=== PATIENT | male | born 1950 | race Caucasian/White ===

== ENCOUNTER 2021-05-22 14:37 | Inpatient (IN) | payer OTHER, MEDICARE ==
[~2021-05-22] VITALS: Ht 182.9 cm; Wt 111.6 kg
[~2021-05-22 14:37] MED LIST: ALBU90OI INH; BACL10 PO; BASAGLAR K100 UNIT/2 SC; QUET25 PO; STIOLTO RESPIMAT4 GM INH
[2021-05-22 14:54] LABS: BASOPHILS ABSOLUTE AUTO 0.04 K/mm3 (0.00-0.23); BASOPHILS PERCENT AUTO 0 % (0-2); EOSINOPHILS ABSOLUTE AUTO 0.05 K/mm3 (0.00-0.68); EOSINOPHILS PERCENT AUTO 0 % (0-6); Hematocrit 34.6 % (37.0-53.0); Hemoglobin 11.1 g/dL (13.5-17.5); IMMATURE GRAN ABSOLUTE AUTO 0.09 K/mm3 (0.00-0.10); IMMATURE GRAN PERCENT AUTO 1 % (0-1); LYMPHOCYTES ABSOLUTE AUTO 2.07 K/mm3 (0.84-5.20); LYMPHOCYTES PERCENT AUTO 18 % (21-46); MONOCYTES ABSOLUTE AUTO 0.66 K/mm3 (0.16-1.47); MONOCYTES PERCENT AUTO 6 % (4-13); Mean Corpuscular HGB 28.5 pg (26.0-34.0); Mean Corpuscular HGB Conc 32.1 g/dL (31.5-36.5); Mean Corpuscular Volume 89 fL (80-100); Mean Platelet Volume 9.2 fL (9.1-12.4); NEUTROPHILS ABSOLUTE AUTO 8.41 K/mm3 (1.96-9.15); NEUTROPHILS PERCENT AUTO 74 % (41-73); Platelet Count 460 K/mm3 (150-400); RDW Coefficient Variation 14.6 % (11.7-14.2); RDW Standard Deviation 47.3 fL (35.1-46.3); White Blood Cell Count 11.32 K/mm3 (4.00-11.30)
[2021-05-22 15:05] LABS: Calcium, Ionized (POC) 1.11 mmol/L (1.10-1.46); Chloride (POC) 107 mmol/L (98-108); Creatinine (POC) 2.5 mg/dL (0.8-1.3); Glucose (ISTAT POC) 106 mg/dL (70-99); Hemoglobin (POC) 11.2 g/dL (13.5-17.5); Potassium (POC) 4.5 mmol/L (3.5-5.5); Sodium (POC) 139 mmol/L (135-148); Total CO2 (POC) 21 mmol/L (21-32)
[2021-05-22 15:35] LABS: Alanine Aminotransfer (ALT/SGP 17 U/L (12-78); Albumin, Blood 2.6 g/dL (3.4-5.0); Albumin/Globulin Ratio 0.5 (0.8-1.8); Alk Phos 101 U/L (50-136); Anion Gap 8 mmol/L (6-16); Aspartate Aminotrans (AST/SGOT 9 U/L (12-37); Bilirubin, Total 0.3 mg/dL (0.1-1.0); Blood Urea Nitrogen 45 mg/dL (8-24); Bun/Creatinine Ratio 20.7 (12.0-20.0); CO2, Blood 21 mmol/L (21-32); Calcium, Blood 8.4 mg/dL (8.5-10.1); Chloride, Blood 107 mmol/L (98-108); Creatinine, Blood 2.17 mg/dL (0.60-1.20); Globulin, Blood 5.5 g/dL (2.2-4.0); Glomerular Filtration Rate 32 (60-); Glucose, Blood 107 mg/dL (70-99); Potassium, Blood 4.2 mmol/L (3.5-5.5); Sodium, Blood 136 mmol/L (136-145); Total Protein, Blood 8.1 g/dL (6.4-8.2); Troponin I <0.015 ng/mL (0.000-0.040)
[2021-05-22 16:33] LABS: PCO2 Arterial 34.7 mmHg (35-45); PO2 Arterial 120 mmHg (80-100); pH Blood Arterial 7.31 (7.35-7.45)
[2021-05-22] MEDS ORDERED: ATOR40TA PO (16:40)
[2021-05-22] MEDS ORDERED: Aspir 8181 MG PO (16:42)
[2021-05-22] MEDS ORDERED: THERA-D2000 UNIT PO (16:43)
[2021-05-22] MEDS ORDERED: JARDIANCE25 MG PO (16:43)
[2021-05-22] MEDS ORDERED: FURO20 PO (16:44)
[2021-05-22] MEDS ORDERED: GABA300 PO (16:44)
[2021-05-22] MEDS ORDERED: NOVOLOG FL100 UNIT/3 SC (16:45)
[2021-05-22] MEDS ORDERED: LEVSOD75 PO (16:46)
[2021-05-22] MEDS ORDERED: METO50ER PO (16:47)
[2021-05-22] MEDS ORDERED: LISI5 PO (16:47)
[2021-05-22] MEDS ORDERED: METF500C PO (16:48)
[2021-05-22] MEDS ORDERED: OMEP20ER PO (16:49)
[2021-05-22] MEDS ORDERED: Flomax0.4 MG PO (16:49)
[2021-05-22] MEDS ORDERED: POTA10T PO (16:50)
[2021-05-22] MEDS ORDERED: ATHLETE'S FOO35.4 GM TOP (16:52)
[2021-05-22] MEDS ORDERED: ANTIFUNGAL POWD71 GM TOP (16:53)
[2021-05-22] MEDS ORDERED: MAGNESIUM OXID500 MG PO (16:53)
[2021-05-22] MEDS ORDERED: GLUCOSE4 GM PO (16:55)
--- NOTE | 2021-05-22 19:01 | NUR ---
PT TO ICU 8 FROM ED AT 1810. PT ARRIVED INTUBATED AND SEDATED ON PROPOFOL 60 MCG/KG/MIN, LEVOPHED @ 12 MCG/MIN. VENT SETTINGS AC 16/450/5/45%. DR. MUNGUIA AT BEDSIDE. DECISION TO EXTUBATE. PROPOFOL PLACED ON STANDBY, PT EXTUBATED AT 1835 TO ROOM AIR. LEVOPHED PLACED ON STANDBY. VSS. REPORT GIVEN TO ONCOMING NURSE.
--- NOTE | 2021-05-22 19:11 | NUR ---
CONSULT- NOTIFIED DR. MARTINEZ OF SURGICAL CONSULT. REVIEWED PT STATUS, SEPTIC SHOCK, VASOPRESSOR REQUIREMENT, FOOT WOUND. INSTRUCTED TO CONSULT PODIATRY. DR. MUNGUIA UPDATED.
--- NOTE | 2021-05-22 19:17 | NUR ---
CONSULT- ATTEMPT TO CALL PODIATRY CONSULT. 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 MESSAGE LEFT FOR LAST SLIP PRESSER PHYSICIAN.
--- NOTE | 2021-05-22 19:45 | NUR ---
ASSUMING PT CARE: PT ARRIVAL. PT HAD ARRIVED SHORTLY BEFORE SHIFT CHANGE AN ADMIT FROM THE ED. PER ED REPORT, PT WAS @ THE [place] FOR SCHEDULED WOUND CARE WHEN HE HAD A SYNCOPAL EPISODE IN THE RESTROOM. HE WAS FOUND TO BE PALE, DIAPHORETIC, & TRANSFERRED TO [facility]. UPON ARRIVAL, PT WAS INITIALLY TALKATIVE & ALERT, BUT PROGRESSIVELY BECAME SOMNOLENT, UNABLE TO RESPOND, PALE & W/ INC WORK OF BREATHING. SBP DROPPED TO 60s. FAST SCAN WAS SUSPICIOUS FOR PERICARDIAL EFFUSION HOWEVER WHEN THE PT's SKIN BECAME MOTTLED & COOL, A 2nd FAST SCAN SHOWED POSS DISSECTION. PT WAS INTUBATED & CTA OBTAINED W/ NEG RESULTS. PT ADMITTED TO ICU FOR SEPTIC SHOCK. SHORTLY AFTER ARRIVAL TO ICU, PT WAS EXTUABTED & PLACED ON NC.
[2021-05-22 20:20] LABS: Source, Urine Catheter
[2021-05-22 20:24] LABS: Appearance, Urine Clear (Clear); Bilirubin, Urine Neg (Neg); Blood, Urine Neg (Neg); Color, Urine Yellow (P-Yellow); Glucose Qualitative, Urine 2+ (Neg); Ketones, Urine Neg (Neg); Leukocyte Esterase, Urine Neg (Neg); Nitrite, Urine Neg (Neg); Protein, Urine 1+ (Neg); Specific Gravity, Urine 1.015 (1.003-1.022); Urobilinogen, Urine NORM (Normal)
[2021-05-22 20:36] LABS: U Amphetamine Screen Not Detected; U Barbituate Screen Not Detected; U Benzodiazapine Screen Not Detected; U Buprenorphine Screen Not Detected; U Cannabinoids Screen Not Detected; U Cocaine Screen Not Detected; U Methadone Screen Not Detected; U Methamphetamine Screen Not Detected; U Opiates Screen Not Detected; U Oxycodone Screen Not Detected; U Phencyclidine Screen Not Detected; U Propoxyphene Screen Not Detected
--- NOTE | 2021-05-22 21:00 | NUR ---
UPDATE: SPOKE W/ DR LEDEZMA, HE IS UNABLE TO CONSULT W/ THIS PT. THERE IS NOT ANOTHER GUIDANCE SECRETARY DECKHAND MAINTENANCE @ THIS TIME. EZRA CALLED & UPDATED, LIQUOR DEPARTMENT MANAGER ALSO MADE AWARE. PT BECOMING INCREASINGLY DYSPNEIC W/ RESP RATE 30-35, W/ COARSE BS AUDIBLE FROM THE DOOR. PT ONLY ABLE TO SPEAK IN 1 WORD SENTENCES & IS VERY TREMULOUS. IV FLUIDS PLACED ON SB & EZRA CALLED & UPDATED ON PT STATUS. ORDERS GIVEN FOR 20mg IV LASIX & CPAP/BiPAP PROTOCOL. RT CALLED TO ASSIST & ORDERS PLACED.
--- NOTE | 2021-05-23 00:30 | NUR ---
UPDATE: CPAP TO NC PT UNABLE TO TOLERATE CPAP ANY LONGER. RT @ BEDSIDE & PT PLACED ON 4L/MIN VIA NC. PT IS STILL VERY DYSPNEIC W/ EXERTION, ONLY ABLE TO SPEAK IN 2 WORD SENTENCES HOWEVER LS HAVE IMPROVED.
--- NOTE | 2021-05-23 02:30 | NUR ---
UPDATE: FEVER PT CONTINUES TO HAVE PERSISTENT INCONTINENCE OF BOWEL. ORDERED MD TYLENOL UNABLE TO BE GIVEN BECAUSE OF CONTINUOUS STOOL. PT PROVIDED W/ COOL WASH CLOTHS & SHEETS REMOVED UNTIL MED CAN BE EFFECTIVELY GIVEN. STOOLS WERE INITIALLY LIQUID & LOOSE, NOW APPEAR TO BE SOMEWHAT PASTY. PT DOES REPORT RECENT CONSTIPATION @ HOME, DENIES TAKING ANY STOOL SOFTENERS OR LAXATIVES.
[2021-05-23 03:50] LABS: PCO2 Arterial 30.5 mmHg (35-45); PO2 Arterial 107 mmHg (80-100); pH Blood Arterial 7.36 (7.35-7.45)
[2021-05-23 03:57] LABS: BASOPHILS ABSOLUTE AUTO 0.07 K/mm3 (0.00-0.23); BASOPHILS PERCENT AUTO 0 % (0-2); EOSINOPHILS ABSOLUTE AUTO 0.01 K/mm3 (0.00-0.68); EOSINOPHILS PERCENT AUTO 0 % (0-6); Hematocrit 33.5 % (37.0-53.0); Hemoglobin 10.7 g/dL (13.5-17.5); IMMATURE GRAN ABSOLUTE AUTO 0.41 K/mm3 (0.00-0.10); IMMATURE GRAN PERCENT AUTO 2 % (0-1); LYMPHOCYTES ABSOLUTE AUTO 1.64 K/mm3 (0.84-5.20); LYMPHOCYTES PERCENT AUTO 6 % (21-46); MONOCYTES ABSOLUTE AUTO 1.93 K/mm3 (0.16-1.47); MONOCYTES PERCENT AUTO 7 % (4-13); Mean Corpuscular HGB 28.3 pg (26.0-34.0); Mean Corpuscular HGB Conc 31.9 g/dL (31.5-36.5); Mean Corpuscular Volume 89 fL (80-100); Mean Platelet Volume 9.6 fL (9.1-12.4); NEUTROPHILS ABSOLUTE AUTO 23.72 K/mm3 (1.96-9.15); NEUTROPHILS PERCENT AUTO 85 % (41-73); Platelet Count 384 K/mm3 (150-400); RDW Standard Deviation 48.2 fL (35.1-46.3); Red Blood Cell Count 3.78 M/mm3 (4.30-5.90); White Blood Cell Count 27.78 K/mm3 (4.00-11.30)
[2021-05-23 04:14] LABS: Bun/Creatinine Ratio 20.9 (12.0-20.0); Calcium, Blood 7.9 mg/dL (8.5-10.1); Creatinine, Blood 2.15 mg/dL (0.60-1.20); Magnesium, Blood 1.6 mg/dL (1.6-2.4); Phosphorus, Blood 3.5 mg/dL (2.5-4.9); Potassium, Blood 4.7 mmol/L (3.5-5.5)
--- NOTE | 2021-05-23 06:00 | NUR ---
SHIFT SUMARY: PT CONTINUES TO DO WELL ON NC @ 4L. SATS >95%. RR 16-22. PT NOW ABLE TO SPEAK IN 3-4 WORD SENTENCES & HELP W/ POSITION CHANGES W/ ONLY MILD CONTINUING DYSPNEA. MONITOR INDICATES A SINUS RHYTHM W/ RATE 70s, SBP 140s. BMs HAVE BECOME MORE FORMED THE NIGHT PROGRESSED. SM AMT OF SKIN BREAKDOWN HAS DEVELOPED OVER THE NIGHT. IT WAS DRESSED W/ HYDROGEL & A FOAM DRESSING. SPOKE W/ PT'S SO THIS MORNING & GIVEN UPDATE ON PT'S IMPROVEMENTS.
--- NOTE | 2021-05-23 09:55 | NUR ---
ASSUMED CARE OF PT, REPORT RCV'D FROM UMESH HAWTHORNE. PT ALERT AND ORIENTED. LUNG SOUNDS CLEAR, SATS 98% ON ROOM AIR. PT HAS OCCASIONAL WET NON PRODUCTIVE COUGH. PT HAS HAD MULTIPLE EPISODE OF WATERY STOOL, MOSTLY CONTINENT. VIDAL REMAINS PATENT AND DRAINING TO GRAVITY. DR. RENNER AT BESIDE, PLAN TO TRANSFER PT TO [place] FOR REVASCULARIZATION AND PODIATRY. LEFT GREAT TOE SWOLLEN AND PURPLE, LEFT MEDIAL FOOT BLACK ESCHAR (FOUL SMELLING), RIGHT GREAT TOE VASCULAR ULCER (SEE PICTS IN CHART). PULSES ABSENT BILATERAL LOWER EXTREMETIES, FLOW HEARD WITH DOPPLER. RIGHT LEG COOL TO TOUCH, LEFT LEG WARM. VSS AT THIS TIME. PT DENIES NEEDS. SEE FULL SHIFT ASSESSMENT.
--- NOTE | 2021-05-23 10:50 | NUR ---
Spoke with Primary RN Aditya and discussed case. Dr Harris to order transfer to [place]. Pt resting in bed upon arrival. Pt denies pain and dyspnea at this time. Reviewed plan of care with Pt and possible plan for transfer. Pt reports being in agreement with plan. He states having an appointment at [facility] tomorrow. Pt requests an extra blanket. After confirming with Aditya provided blanket for Pt. Dr Flores into to see Pt. Palliative Care will remain available.
--- NOTE | 2021-05-23 14:59 | NUR ---
PT AND PT'S GIRLFRIEND (LIZETH) UPDATED WITH PLAN TO TRANSFER TO [facility] INTO THE CARE OF PT'S SURGEON DR. ESCALONA BED BECOMES AVAILABLE. PT'S GIRLFRIEND TAKING PT'S BELONGINGS HOME AND LEAVING "TO GO" BAG WITH EXTRA CHANGE OF CLOTHES. PER LIZETH, PT'S BROTHER AND SISTER ARE FLYING IN FROM OUT OF STATE TOMORROW TO BE AVAILABLE FOR SUPPORT. PT REMAINS ON ROOM AIR WITH SATS>90%, BP WNL. PT ABLE TO EAT LUNCH WITH NO DIFFICULTIES. PT DENIES NEEDS AT THIS TIME.
--- NOTE | 2021-05-23 15:42 | NUR ---
PT TO BE TRANSFERRED TO [facility] ROOM 4409. REPORT GIVEN TO UMESH WOODRUFF. PT AND FAMILY UPDATED AND MEDICAL TRANSPORT NOTIFIED.
--- NOTE | 2021-05-23 16:30 | NUR ---
PT LEFT ICUJ8 AT 1628 TRANSPORTED VIA GURNEY BY EMS. PT'S GIRLFRIEND AT BEDSIDE.
== END 2021-05-23 16:29 | disposition short-term general hospital (02) | DRG 871 ==
LOC: ER 14:37 → ICUE 16:17 → ICUW 16:17 → ICUE 17:41
PROVIDERS: Emergency Medicine; Internal Medicine Critical Care Medicine; Nurse Practitioner Acute Care; ADMIT Internal Medicine
PROC: 0BH18EZ Insertion of Endotracheal Airway into Trachea, Via Natural or Artificial Opening Endoscopic (ICD-10-PCS; principal; 2021-05-22)
PROC: 5A1935Z Respiratory Ventilation, Less than 24 Consecutive Hours (ICD-10-PCS; 2021-05-22)
PROC: 3E033XZ Introduction of Vasopressor into Peripheral Vein, Percutaneous Approach (ICD-10-PCS; 2021-05-22)
DX: A41.9 Sepsis, unspecified organism (principal); R65.21 Severe sepsis with septic shock; J96.01 Acute respiratory failure with hypoxia; I50.42 Chronic combined systolic (congestive) and diastolic (congestive) heart failure; I13.0 Hypertensive heart and chronic kidney disease with heart failure and stage 1 through stage 4 chronic kidney disease, or unspecified chronic kidney disease; E11.52 Type 2 diabetes mellitus with diabetic peripheral angiopathy with gangrene; I96 Gangrene, not elsewhere classified; J44.9 Chronic obstructive pulmonary disease, unspecified; E11.22 Type 2 diabetes mellitus with diabetic chronic kidney disease; E11.51 Type 2 diabetes mellitus with diabetic peripheral angiopathy without gangrene; Z95.1 Presence of aortocoronary bypass graft; E83.42 Hypomagnesemia; N18.30 Chronic kidney disease, stage 3 unspecified; E11.40 Type 2 diabetes mellitus with diabetic neuropathy, unspecified; Z85.118 Personal history of other malignant neoplasm of bronchus and lung; N40.0 Benign prostatic hyperplasia without lower urinary tract symptoms; B19.20 Unspecified viral hepatitis C without hepatic coma; Z90.49 Acquired absence of other specified parts of digestive tract; Z98.890 Other specified postprocedural states; Z90.2 Acquired absence of lung [part of]; Z89.429 Acquired absence of other toe(s), unspecified side; Z87.891 Personal history of nicotine dependence; Z79.82 Long term (current) use of aspirin; Z79.899 Other long term (current) drug therapy; Z79.4 Long term (current) use of insulin
CPT/HCPCS: 31500; 36415; 36600; 51702; 71045; 71275; 73630; 74174; 80047; 80048; 80053; 82330; 82803; 82947; 83605; 83690; 83735; 84100; 84484; 85014; 85025; 85730; 87040; 93005; 93010; 93925; 94002; 94660; 96365-59; 96366-59; 99285-25; A9270; C1751; J0330; J0692; J1940; J2543; J2704; J3010; J3370; J3475; J7030; J7060; Q9967

== ENCOUNTER 2021-08-09 02:34 | Day surgery (SDC) | payer OTHER ==
[~2021-08-09 02:34] MED LIST changes: +ANTIFUNGAL POWD71 GM TOP; +ATHLETE'S FOO35.4 GM TOP; +ATOR40TA PO; +Aspir 8181 MG PO; +FURO20 PO; +Flomax0.4 MG PO; +GABA300 PO; +GLUCOSE4 GM PO; +JARDIANCE25 MG PO; +LEVSOD75 PO; +LISI5 PO; +MAGNESIUM OXID500 MG PO; +METF500C PO; +METO50ER PO; +NOVOLOG FL100 UNIT/3 SC; +OMEP20ER PO; +POTA10T PO; +THERA-D2000 UNIT PO
== END 2021-08-09 23:48 | disposition home or self-care (01) ==
LOC: WOUND 02:34
DX: E11.621 Type 2 diabetes mellitus with foot ulcer (principal); L97.519 Non-pressure chronic ulcer of other part of right foot with unspecified severity; E11.59 Type 2 diabetes mellitus with other circulatory complications; Z89.412 Acquired absence of left great toe
CPT/HCPCS: A9270

== ENCOUNTER 2021-08-14 01:15 | Day surgery (SDC) | payer OTHER | END 2021-08-14 23:05 | disposition home or self-care (01) | LOC: WOUND 01:15 | DX: E11.621 Type 2 diabetes mellitus with foot ulcer (principal); L97.525 Non-pressure chronic ulcer of other part of left foot with muscle involvement without evidence of necrosis; E11.59 Type 2 diabetes mellitus with other circulatory complications; Z89.412 Acquired absence of left great toe ==

== ENCOUNTER 2021-08-16 00:56 | Day surgery (SDC) | payer OTHER | END 2021-08-16 23:55 | disposition home or self-care (01) | LOC: WOUND 00:56 | DX: E11.621 Type 2 diabetes mellitus with foot ulcer (principal); L97.519 Non-pressure chronic ulcer of other part of right foot with unspecified severity; E11.59 Type 2 diabetes mellitus with other circulatory complications; Z89.412 Acquired absence of left great toe | CPT/HCPCS: A9270 ==

== ENCOUNTER 2021-08-18 01:56 | Day surgery (SDC) | payer OTHER | END 2021-08-18 23:23 | disposition home or self-care (01) | LOC: WOUND 01:56 | DX: E11.621 Type 2 diabetes mellitus with foot ulcer (principal); L97.525 Non-pressure chronic ulcer of other part of left foot with muscle involvement without evidence of necrosis; L97.519 Non-pressure chronic ulcer of other part of right foot with unspecified severity; E11.59 Type 2 diabetes mellitus with other circulatory complications; Z89.412 Acquired absence of left great toe ==

== ENCOUNTER 2021-08-21 02:53 | Day surgery (SDC) | payer OTHER | END 2021-08-21 22:57 | disposition home or self-care (01) | LOC: WOUND 02:53 | DX: E11.621 Type 2 diabetes mellitus with foot ulcer (principal); L97.519 Non-pressure chronic ulcer of other part of right foot with unspecified severity; E11.59 Type 2 diabetes mellitus with other circulatory complications; Z89.412 Acquired absence of left great toe ==

== ENCOUNTER 2021-08-25 04:36 | Day surgery (SDC) | payer OTHER | END 2021-08-25 23:15 | disposition home or self-care (01) | LOC: WOUND 04:36 | DX: E11.621 Type 2 diabetes mellitus with foot ulcer (principal); L97.525 Non-pressure chronic ulcer of other part of left foot with muscle involvement without evidence of necrosis; L97.519 Non-pressure chronic ulcer of other part of right foot with unspecified severity; E11.59 Type 2 diabetes mellitus with other circulatory complications; Z89.412 Acquired absence of left great toe | CPT/HCPCS: A9270 ==

== ENCOUNTER 2021-08-31 00:37 | Day surgery (SDC) | payer OTHER | END 2021-08-31 23:03 | disposition home or self-care (01) | LOC: WOUND 00:37 | DX: E10.621 Type 1 diabetes mellitus with foot ulcer (principal); L97.525 Non-pressure chronic ulcer of other part of left foot with muscle involvement without evidence of necrosis; L97.519 Non-pressure chronic ulcer of other part of right foot with unspecified severity; E10.42 Type 1 diabetes mellitus with diabetic polyneuropathy; E10.59 Type 1 diabetes mellitus with other circulatory complications; Z89.412 Acquired absence of left great toe | CPT/HCPCS: A9270 ==

== ENCOUNTER 2021-09-08 01:21 | Day surgery (SDC) | payer OTHER | END 2021-09-08 23:45 | disposition home or self-care (01) | LOC: WOUND 01:21 | DX: E11.621 Type 2 diabetes mellitus with foot ulcer (principal); L97.422 Non-pressure chronic ulcer of left heel and midfoot with fat layer exposed; L97.519 Non-pressure chronic ulcer of other part of right foot with unspecified severity; E11.59 Type 2 diabetes mellitus with other circulatory complications; E11.42 Type 2 diabetes mellitus with diabetic polyneuropathy; Z89.412 Acquired absence of left great toe | CPT/HCPCS: A9270 ==

== ENCOUNTER 2021-09-22 03:41 | Day surgery (SDC) | payer OTHER | END 2021-09-22 22:53 | disposition home or self-care (01) | LOC: WOUND 03:41 | DX: E11.621 Type 2 diabetes mellitus with foot ulcer (principal); L97.525 Non-pressure chronic ulcer of other part of left foot with muscle involvement without evidence of necrosis; L97.519 Non-pressure chronic ulcer of other part of right foot with unspecified severity; E11.59 Type 2 diabetes mellitus with other circulatory complications; Z89.412 Acquired absence of left great toe | CPT/HCPCS: A9270 ==

== ENCOUNTER 2021-09-29 05:45 | Day surgery (SDC) | payer OTHER | END 2021-09-29 23:35 | disposition home or self-care (01) | LOC: WOUND 05:45 | DX: E11.621 Type 2 diabetes mellitus with foot ulcer (principal); L97.525 Non-pressure chronic ulcer of other part of left foot with muscle involvement without evidence of necrosis; L97.519 Non-pressure chronic ulcer of other part of right foot with unspecified severity; E11.59 Type 2 diabetes mellitus with other circulatory complications; Z89.412 Acquired absence of left great toe | CPT/HCPCS: A9270 ==

== ENCOUNTER 2021-10-16 01:48 | Day surgery (SDC) | payer OTHER | END 2021-10-16 23:10 | disposition home or self-care (01) | LOC: WOUND 01:48 | DX: E11.621 Type 2 diabetes mellitus with foot ulcer (principal); L97.525 Non-pressure chronic ulcer of other part of left foot with muscle involvement without evidence of necrosis; L97.519 Non-pressure chronic ulcer of other part of right foot with unspecified severity; E11.59 Type 2 diabetes mellitus with other circulatory complications; Z89.412 Acquired absence of left great toe | CPT/HCPCS: A9270 ==

== ENCOUNTER 2021-10-23 04:16 | Day surgery (SDC) | payer OTHER | END 2021-10-23 23:05 | disposition home or self-care (01) | LOC: WOUND 04:16 | DX: E11.621 Type 2 diabetes mellitus with foot ulcer (principal); L97.525 Non-pressure chronic ulcer of other part of left foot with muscle involvement without evidence of necrosis; L97.519 Non-pressure chronic ulcer of other part of right foot with unspecified severity; E11.59 Type 2 diabetes mellitus with other circulatory complications; Z89.412 Acquired absence of left great toe | CPT/HCPCS: A9270 ==

== ENCOUNTER 2021-10-30 03:54 | Day surgery (SDC) | payer OTHER | END 2021-10-30 22:51 | disposition home or self-care (01) | LOC: WOUND 03:54 | DX: E11.621 Type 2 diabetes mellitus with foot ulcer (principal); L97.519 Non-pressure chronic ulcer of other part of right foot with unspecified severity; E11.59 Type 2 diabetes mellitus with other circulatory complications; Z89.412 Acquired absence of left great toe | CPT/HCPCS: A9270; Q4133 ==

== ENCOUNTER 2021-11-06 04:18 | Day surgery (SDC) | payer OTHER | END 2021-11-06 12:00 | disposition home or self-care (01) | LOC: WOUND 04:18 | DX: E11.621 Type 2 diabetes mellitus with foot ulcer (principal); L97.525 Non-pressure chronic ulcer of other part of left foot with muscle involvement without evidence of necrosis; L97.519 Non-pressure chronic ulcer of other part of right foot with unspecified severity; E11.59 Type 2 diabetes mellitus with other circulatory complications; Z89.412 Acquired absence of left great toe | CPT/HCPCS: A9270; G0463 ==

== ENCOUNTER 2021-11-13 04:36 | Day surgery (SDC) | payer OTHER | END 2021-11-13 22:49 | disposition home or self-care (01) | LOC: WOUND 04:36 | DX: E11.621 Type 2 diabetes mellitus with foot ulcer (principal); L97.525 Non-pressure chronic ulcer of other part of left foot with muscle involvement without evidence of necrosis; E11.59 Type 2 diabetes mellitus with other circulatory complications; Z89.412 Acquired absence of left great toe | CPT/HCPCS: A9270; Q4133 ==

== ENCOUNTER 2021-11-20 03:47 | Day surgery (SDC) | payer OTHER | END 2021-11-20 22:42 | disposition home or self-care (01) | LOC: WOUND 03:47 | DX: E11.621 Type 2 diabetes mellitus with foot ulcer (principal); L97.519 Non-pressure chronic ulcer of other part of right foot with unspecified severity; E11.59 Type 2 diabetes mellitus with other circulatory complications; E11.42 Type 2 diabetes mellitus with diabetic polyneuropathy; Z89.412 Acquired absence of left great toe | CPT/HCPCS: A9270; Q4133 ==

== ENCOUNTER 2021-12-06 05:58 | Day surgery (SDC) | payer OTHER | END 2021-12-06 23:42 | disposition home or self-care (01) | LOC: WOUND 05:58 | DX: E11.621 Type 2 diabetes mellitus with foot ulcer (principal); L97.525 Non-pressure chronic ulcer of other part of left foot with muscle involvement without evidence of necrosis; L97.519 Non-pressure chronic ulcer of other part of right foot with unspecified severity; E11.59 Type 2 diabetes mellitus with other circulatory complications; Z89.412 Acquired absence of left great toe | CPT/HCPCS: Q4133 ==

== ENCOUNTER 2021-12-13 01:50 | Day surgery (SDC) | payer OTHER | END 2021-12-13 22:37 | disposition home or self-care (01) | LOC: WOUND 01:50 | DX: E10.621 Type 1 diabetes mellitus with foot ulcer (principal); L97.525 Non-pressure chronic ulcer of other part of left foot with muscle involvement without evidence of necrosis; L97.519 Non-pressure chronic ulcer of other part of right foot with unspecified severity; E10.59 Type 1 diabetes mellitus with other circulatory complications; E10.42 Type 1 diabetes mellitus with diabetic polyneuropathy; Z89.412 Acquired absence of left great toe; Z86.14 Personal history of Methicillin resistant Staphylococcus aureus infection | CPT/HCPCS: Q4133 ==

== ENCOUNTER 2021-12-20 00:46 | Day surgery (SDC) | payer OTHER | END 2021-12-20 22:50 | disposition home or self-care (01) | LOC: WOUND 00:46 | DX: E11.621 Type 2 diabetes mellitus with foot ulcer (principal); L97.525 Non-pressure chronic ulcer of other part of left foot with muscle involvement without evidence of necrosis; L97.519 Non-pressure chronic ulcer of other part of right foot with unspecified severity; E11.59 Type 2 diabetes mellitus with other circulatory complications; Z89.412 Acquired absence of left great toe | CPT/HCPCS: A9270; Q4133 ==

== ENCOUNTER 2021-12-27 01:28 | Day surgery (SDC) | payer OTHER | END 2021-12-27 23:05 | disposition home or self-care (01) | LOC: WOUND 01:28 | DX: E10.621 Type 1 diabetes mellitus with foot ulcer (principal); L97.525 Non-pressure chronic ulcer of other part of left foot with muscle involvement without evidence of necrosis; Z89.412 Acquired absence of left great toe; E10.42 Type 1 diabetes mellitus with diabetic polyneuropathy; Z86.14 Personal history of Methicillin resistant Staphylococcus aureus infection | CPT/HCPCS: G0463 ==

== ENCOUNTER 2022-01-03 03:38 | Day surgery (SDC) | payer OTHER | END 2022-01-04 02:22 | disposition home or self-care (01) | LOC: WOUND 03:38 | DX: E11.621 Type 2 diabetes mellitus with foot ulcer (principal); L97.525 Non-pressure chronic ulcer of other part of left foot with muscle involvement without evidence of necrosis; E11.59 Type 2 diabetes mellitus with other circulatory complications; L97.519 Non-pressure chronic ulcer of other part of right foot with unspecified severity; Z89.412 Acquired absence of left great toe | CPT/HCPCS: Q4133 ==

== ENCOUNTER 2022-01-10 01:12 | Day surgery (SDC) | payer OTHER | END 2022-01-10 23:33 | disposition home or self-care (01) | LOC: WOUND 01:12 | DX: E11.621 Type 2 diabetes mellitus with foot ulcer (principal); L97.525 Non-pressure chronic ulcer of other part of left foot with muscle involvement without evidence of necrosis; L97.519 Non-pressure chronic ulcer of other part of right foot with unspecified severity; E11.59 Type 2 diabetes mellitus with other circulatory complications; E11.42 Type 2 diabetes mellitus with diabetic polyneuropathy; Z89.412 Acquired absence of left great toe ==

== ENCOUNTER 2022-01-17 00:17 | Day surgery (SDC) | payer OTHER | END 2022-01-17 23:21 | disposition home or self-care (01) | LOC: WOUND 00:17 | DX: E11.621 Type 2 diabetes mellitus with foot ulcer (principal); L97.522 Non-pressure chronic ulcer of other part of left foot with fat layer exposed; E11.59 Type 2 diabetes mellitus with other circulatory complications; E11.42 Type 2 diabetes mellitus with diabetic polyneuropathy; Z89.412 Acquired absence of left great toe | CPT/HCPCS: G0463 ==

== ENCOUNTER 2022-01-24 01:02 | Day surgery (SDC) | payer OTHER | END 2022-01-24 22:48 | disposition home or self-care (01) | LOC: WOUND 01:02 | DX: E11.621 Type 2 diabetes mellitus with foot ulcer (principal); L97.522 Non-pressure chronic ulcer of other part of left foot with fat layer exposed; Z89.412 Acquired absence of left great toe; Z86.14 Personal history of Methicillin resistant Staphylococcus aureus infection | CPT/HCPCS: A9270; G0463 ==

== ENCOUNTER 2022-01-31 01:58 | Day surgery (SDC) | payer OTHER | END 2022-01-31 23:19 | disposition home or self-care (01) | LOC: WOUND 01:58 | DX: E11.621 Type 2 diabetes mellitus with foot ulcer (principal); L97.522 Non-pressure chronic ulcer of other part of left foot with fat layer exposed; E11.42 Type 2 diabetes mellitus with diabetic polyneuropathy; Z86.14 Personal history of Methicillin resistant Staphylococcus aureus infection; Z89.412 Acquired absence of left great toe | CPT/HCPCS: A9270 ==

== ENCOUNTER 2022-02-07 10:46 | Day surgery (SDC) | payer OTHER | END 2022-02-07 23:01 | disposition home or self-care (01) | LOC: WOUND 10:46 | DX: E11.621 Type 2 diabetes mellitus with foot ulcer (principal); L97.522 Non-pressure chronic ulcer of other part of left foot with fat layer exposed; E11.42 Type 2 diabetes mellitus with diabetic polyneuropathy; Z86.14 Personal history of Methicillin resistant Staphylococcus aureus infection; Z89.412 Acquired absence of left great toe | CPT/HCPCS: A9270; Q4133 ==

== ENCOUNTER 2022-02-14 01:14 | Day surgery (SDC) | payer OTHER ==
[~2022-02-14 01:14] MED LIST changes: -ANTIFUNGAL POWD71 GM TOP; +ANTIFUNGAL POWD85 GM TOP; +LEVSOD100 PO; -LEVSOD75 PO
== END 2022-02-14 23:13 | disposition home or self-care (01) ==
LOC: WOUND 01:14
DX: E11.621 Type 2 diabetes mellitus with foot ulcer (principal); L97.522 Non-pressure chronic ulcer of other part of left foot with fat layer exposed; E11.59 Type 2 diabetes mellitus with other circulatory complications; L97.519 Non-pressure chronic ulcer of other part of right foot with unspecified severity; Z89.412 Acquired absence of left great toe
CPT/HCPCS: Q4133

== ENCOUNTER 2022-02-20 02:28 | Day surgery (SDC) | payer OTHER ==
[~2022-02-20 02:28] MED LIST changes: +ANTIFUNGAL POWD71 GM TOP; -ANTIFUNGAL POWD85 GM TOP; -LEVSOD100 PO; +LEVSOD75 PO
== END 2022-02-20 23:35 | disposition home or self-care (01) ==
LOC: WOUND 02:28
DX: E11.621 Type 2 diabetes mellitus with foot ulcer (principal); L97.522 Non-pressure chronic ulcer of other part of left foot with fat layer exposed; E11.40 Type 2 diabetes mellitus with diabetic neuropathy, unspecified; E11.59 Type 2 diabetes mellitus with other circulatory complications; Z89.412 Acquired absence of left great toe
CPT/HCPCS: A9270; G0463

== ENCOUNTER 2022-02-28 00:29 | Day surgery (SDC) | payer OTHER | END 2022-02-28 23:00 | disposition home or self-care (01) | LOC: WOUND 00:29 | DX: E11.621 Type 2 diabetes mellitus with foot ulcer (principal); L97.522 Non-pressure chronic ulcer of other part of left foot with fat layer exposed; E11.42 Type 2 diabetes mellitus with diabetic polyneuropathy; T81.31XA Disruption of external operation (surgical) wound, not elsewhere classified, initial encounter; Y83.8 Other surgical procedures as the cause of abnormal reaction of the patient, or of later complication, without mention of misadventure at the time of the procedure; E11.59 Type 2 diabetes mellitus with other circulatory complications; Z89.412 Acquired absence of left great toe | CPT/HCPCS: A9270; G0463 ==

== ENCOUNTER 2022-03-07 01:49 | Day surgery (SDC) | payer OTHER | END 2022-03-07 23:20 | disposition home or self-care (01) | LOC: WOUND 01:49 | DX: E11.621 Type 2 diabetes mellitus with foot ulcer (principal); L97.522 Non-pressure chronic ulcer of other part of left foot with fat layer exposed; E11.59 Type 2 diabetes mellitus with other circulatory complications; L97.519 Non-pressure chronic ulcer of other part of right foot with unspecified severity; Z89.412 Acquired absence of left great toe | CPT/HCPCS: G0463 ==

== ENCOUNTER 2022-03-14 02:15 | Day surgery (SDC) | payer OTHER | END 2022-03-14 23:08 | disposition home or self-care (01) | LOC: WOUND 02:15 | DX: E11.621 Type 2 diabetes mellitus with foot ulcer (principal); L97.522 Non-pressure chronic ulcer of other part of left foot with fat layer exposed; E11.42 Type 2 diabetes mellitus with diabetic polyneuropathy; Z89.412 Acquired absence of left great toe; Z86.14 Personal history of Methicillin resistant Staphylococcus aureus infection | CPT/HCPCS: A9270; G0463 ==

== ENCOUNTER 2022-03-21 15:29 | Day surgery (SDC) | payer OTHER | END 2022-03-21 23:04 | disposition home or self-care (01) | LOC: WOUND 15:29 | DX: E11.621 Type 2 diabetes mellitus with foot ulcer (principal); L97.522 Non-pressure chronic ulcer of other part of left foot with fat layer exposed; Z89.412 Acquired absence of left great toe; T81.31XA Disruption of external operation (surgical) wound, not elsewhere classified, initial encounter; Z86.14 Personal history of Methicillin resistant Staphylococcus aureus infection | CPT/HCPCS: G0463 ==

== ENCOUNTER 2022-03-28 01:16 | Day surgery (SDC) | payer OTHER | END 2022-03-28 22:44 | disposition home or self-care (01) | LOC: WOUND 01:16 | DX: E11.621 Type 2 diabetes mellitus with foot ulcer (principal); T81.31XA Disruption of external operation (surgical) wound, not elsewhere classified, initial encounter; L97.519 Non-pressure chronic ulcer of other part of right foot with unspecified severity; L97.522 Non-pressure chronic ulcer of other part of left foot with fat layer exposed; E11.59 Type 2 diabetes mellitus with other circulatory complications; Z89.412 Acquired absence of left great toe | CPT/HCPCS: A9270; G0463 ==

== ENCOUNTER 2022-04-06 00:29 | Day surgery (SDC) | payer OTHER | END 2022-04-06 22:52 | disposition home or self-care (01) | LOC: WOUND 00:29 | DX: E11.621 Type 2 diabetes mellitus with foot ulcer (principal); L97.519 Non-pressure chronic ulcer of other part of right foot with unspecified severity; L97.522 Non-pressure chronic ulcer of other part of left foot with fat layer exposed; E11.59 Type 2 diabetes mellitus with other circulatory complications; Z89.412 Acquired absence of left great toe | CPT/HCPCS: A9270; G0463 ==

== ENCOUNTER 2022-04-11 02:35 | Day surgery (SDC) | payer OTHER | END 2022-04-11 23:37 | disposition home or self-care (01) | LOC: WOUND 02:35 | DX: E11.621 Type 2 diabetes mellitus with foot ulcer (principal); L97.522 Non-pressure chronic ulcer of other part of left foot with fat layer exposed; L97.519 Non-pressure chronic ulcer of other part of right foot with unspecified severity; E11.59 Type 2 diabetes mellitus with other circulatory complications; Z89.412 Acquired absence of left great toe; E11.42 Type 2 diabetes mellitus with diabetic polyneuropathy | CPT/HCPCS: A9270; G0463 ==

== ENCOUNTER 2022-04-17 02:03 | Day surgery (SDC) | payer OTHER | END 2022-04-17 23:16 | disposition home or self-care (01) | LOC: WOUND 02:03 | DX: E11.621 Type 2 diabetes mellitus with foot ulcer (principal); L97.522 Non-pressure chronic ulcer of other part of left foot with fat layer exposed; L97.519 Non-pressure chronic ulcer of other part of right foot with unspecified severity; Z89.412 Acquired absence of left great toe; E11.59 Type 2 diabetes mellitus with other circulatory complications; T81.30XA Disruption of wound, unspecified, initial encounter | CPT/HCPCS: A9270 ==

== ENCOUNTER 2022-04-25 01:40 | Day surgery (SDC) | payer OTHER | END 2022-04-25 23:22 | disposition home or self-care (01) | LOC: WOUND 01:40 | DX: E11.621 Type 2 diabetes mellitus with foot ulcer (principal); L97.522 Non-pressure chronic ulcer of other part of left foot with fat layer exposed; L97.519 Non-pressure chronic ulcer of other part of right foot with unspecified severity; E11.59 Type 2 diabetes mellitus with other circulatory complications; Z89.412 Acquired absence of left great toe | CPT/HCPCS: A9270 ==

== ENCOUNTER 2022-05-02 02:44 | Day surgery (SDC) | payer OTHER | END 2022-05-02 23:42 | disposition home or self-care (01) | LOC: WOUND 02:44 | DX: E11.621 Type 2 diabetes mellitus with foot ulcer (principal); L97.522 Non-pressure chronic ulcer of other part of left foot with fat layer exposed; L97.519 Non-pressure chronic ulcer of other part of right foot with unspecified severity; E11.59 Type 2 diabetes mellitus with other circulatory complications; Z89.412 Acquired absence of left great toe; E11.42 Type 2 diabetes mellitus with diabetic polyneuropathy | CPT/HCPCS: A9270 ==

== ENCOUNTER 2022-05-09 02:08 | Day surgery (SDC) | payer OTHER | END 2022-05-14 23:39 | disposition home or self-care (01) | LOC: WOUND 02:08 | DX: E11.621 Type 2 diabetes mellitus with foot ulcer (principal); L97.522 Non-pressure chronic ulcer of other part of left foot with fat layer exposed; L97.519 Non-pressure chronic ulcer of other part of right foot with unspecified severity; Z89.412 Acquired absence of left great toe; E11.59 Type 2 diabetes mellitus with other circulatory complications | CPT/HCPCS: A9270; Q4133 ==

== ENCOUNTER 2022-05-16 04:38 | Day surgery (SDC) | payer OTHER | END 2022-05-16 23:13 | disposition home or self-care (01) | LOC: WOUND 04:38 | DX: E11.621 Type 2 diabetes mellitus with foot ulcer (principal); L97.522 Non-pressure chronic ulcer of other part of left foot with fat layer exposed; T81.31XA Disruption of external operation (surgical) wound, not elsewhere classified, initial encounter; L97.519 Non-pressure chronic ulcer of other part of right foot with unspecified severity; E11.59 Type 2 diabetes mellitus with other circulatory complications; Z89.412 Acquired absence of left great toe | CPT/HCPCS: A9270; Q4133 ==

== ENCOUNTER 2022-05-23 01:19 | Day surgery (SDC) | payer OTHER | END 2022-05-23 22:48 | disposition home or self-care (01) | LOC: WOUND 01:19 | DX: E11.621 Type 2 diabetes mellitus with foot ulcer (principal); L97.522 Non-pressure chronic ulcer of other part of left foot with fat layer exposed; L97.519 Non-pressure chronic ulcer of other part of right foot with unspecified severity; E11.59 Type 2 diabetes mellitus with other circulatory complications; Z89.412 Acquired absence of left great toe | CPT/HCPCS: A9270; Q4133 ==

== ENCOUNTER 2022-05-30 01:55 | Day surgery (SDC) | payer OTHER | END 2022-05-30 22:46 | disposition home or self-care (01) | LOC: WOUND 01:55 | DX: E11.621 Type 2 diabetes mellitus with foot ulcer (principal); L97.522 Non-pressure chronic ulcer of other part of left foot with fat layer exposed; L97.519 Non-pressure chronic ulcer of other part of right foot with unspecified severity; E11.59 Type 2 diabetes mellitus with other circulatory complications; Z89.412 Acquired absence of left great toe | CPT/HCPCS: A9270; G0463 ==

== ENCOUNTER 2022-06-13 04:21 | Day surgery (SDC) | payer OTHER ==
[~2022-06-13 04:21] MED LIST changes: -ANTIFUNGAL POWD71 GM TOP; +ANTIFUNGAL POWD85 GM TOP; +LEVSOD100 PO; -LEVSOD75 PO
== END 2022-06-13 23:49 ==
LOC: WOUND 04:21
DX: E11.621 Type 2 diabetes mellitus with foot ulcer (principal); L97.522 Non-pressure chronic ulcer of other part of left foot with fat layer exposed; L97.519 Non-pressure chronic ulcer of other part of right foot with unspecified severity; E11.59 Type 2 diabetes mellitus with other circulatory complications; Z89.412 Acquired absence of left great toe
CPT/HCPCS: A9270; G0463

== ENCOUNTER 2022-06-27 01:24 | Day surgery (SDC) | payer OTHER ==
[~2022-06-27 01:24] MED LIST changes: +ANTIFUNGAL POWD71 GM TOP; -ANTIFUNGAL POWD85 GM TOP; -LEVSOD100 PO; +LEVSOD75 PO
== END 2022-06-27 23:34 | disposition home or self-care (01) ==
LOC: WOUND 01:24
DX: T81.31XA Disruption of external operation (surgical) wound, not elsewhere classified, initial encounter (principal); E10.621 Type 1 diabetes mellitus with foot ulcer; L97.522 Non-pressure chronic ulcer of other part of left foot with fat layer exposed; Y83.9 Surgical procedure, unspecified as the cause of abnormal reaction of the patient, or of later complication, without mention of misadventure at the time of the procedure; Z89.412 Acquired absence of left great toe
CPT/HCPCS: A9270; G0463

== ENCOUNTER 2022-07-11 01:19 | Day surgery (SDC) | payer OTHER | END 2022-07-11 23:02 | disposition home or self-care (01) | LOC: WOUND 01:19 | DX: E11.621 Type 2 diabetes mellitus with foot ulcer (principal); L97.522 Non-pressure chronic ulcer of other part of left foot with fat layer exposed; L97.519 Non-pressure chronic ulcer of other part of right foot with unspecified severity; E11.59 Type 2 diabetes mellitus with other circulatory complications; Z89.412 Acquired absence of left great toe | CPT/HCPCS: A9270; G0463 ==

== ENCOUNTER 2022-07-17 23:25 | Inpatient (IN) | payer OTHER ==
[~2022-07-17] VITALS: Ht 190.5 cm; Wt 114.3 kg
[~2022-07-17 23:25] MED LIST changes: -ANTIFUNGAL POWD71 GM TOP; +ANTIFUNGAL POWD85 GM TOP; +LEVSOD100 PO; -LEVSOD75 PO
[2022-07-18 00:20] LABS: BASOPHILS ABSOLUTE AUTO 0.05 K/mm3 (0.00-0.23); BASOPHILS PERCENT AUTO 0 % (0-2); EOSINOPHILS ABSOLUTE AUTO 0.01 K/mm3 (0.00-0.68); EOSINOPHILS PERCENT AUTO 0 % (0-6); Hematocrit 40.4 % (37.0-53.0); Hemoglobin 13.4 g/dL (13.5-17.5); IMMATURE GRAN PERCENT AUTO 1 % (0-1); LYMPHOCYTES ABSOLUTE AUTO 0.76 K/mm3 (0.84-5.20); LYMPHOCYTES PERCENT AUTO 4 % (21-46); MONOCYTES ABSOLUTE AUTO 1.16 K/mm3 (0.16-1.47); MONOCYTES PERCENT AUTO 6 % (4-13); Mean Corpuscular HGB 30.7 pg (26.0-34.0); Mean Corpuscular HGB Conc 33.2 g/dL (31.5-36.5); Mean Corpuscular Volume 92 fL (80-100); NEUTROPHILS ABSOLUTE AUTO 16.37 K/mm3 (1.96-9.15); NEUTROPHILS PERCENT AUTO 88 % (41-73); RDW Coefficient Variation 13.6 % (11.7-14.2); RDW Standard Deviation 46.5 fL (35.1-46.3); Red Blood Cell Count 4.37 M/mm3 (4.30-5.90); White Blood Cell Count 18.55 K/mm3 (4.00-11.30)
[2022-07-18 00:22] LABS: Albumin, Blood 3.5 g/dL (3.4-5.0); Albumin/Globulin Ratio 0.8 (0.8-1.8); Bilirubin, Total 0.5 mg/dL (0.1-1.0); Bun/Creatinine Ratio 25.2 (12.0-20.0); Calcium, Blood 8.5 mg/dL (8.5-10.1); Creatinine, Blood 1.43 mg/dL (0.60-1.20); Globulin, Blood 4.6 g/dL (2.2-4.0); Potassium, Blood 4.9 mmol/L (3.5-5.5); Total Protein, Blood 8.1 g/dL (6.4-8.2)
[2022-07-18 00:29] LABS: Mean Platelet Volume 10.2 fL (9.1-12.4); Platelet Count 232 K/mm3 (150-400)
[2022-07-18 01:15] LABS: Influenza A, PCR NEGATIVE (NEGATIVE); Influenza B, PCR NEGATIVE (NEGATIVE); Resp Syncytial Virus, PCR NEGATIVE (NEGATIVE); SARS-Cov-2 (COVID-19) PCR, MMC NEGATIVE (NEGATIVE)
--- NOTE | 2022-07-18 04:54 | NUR ---
SHIFT SUMMARY PT ARRIVED TO THE FLOOR AT 0330. HE IS NOT IN ANY PAIN, BUT IS VERY SOB. HE SAID THIS IS NORMAL FOR HIM, BUT THIS TIME HE MUST HAVE BLACKED OUT. PT IS SATTING 93% ON 4L NC. HE IS BED REST FOR NOW, BUT WAS ABLE TO TRANSER FROM A WHEELCHAIR TO THE BED. BED IN LOWEST POSITION AND CALL LIGHT IN REACH
[2022-07-18] MEDS ORDERED: QUET25 PO (04:56)
[2022-07-18] MEDS ORDERED: FINA5 PO (04:57)
[2022-07-18 04:58] LABS: Hematocrit 38.3 % (37.0-53.0); Hemoglobin 12.5 g/dL (13.5-17.5); Mean Corpuscular HGB 30.9 pg (26.0-34.0); Mean Corpuscular HGB Conc 32.6 g/dL (31.5-36.5); Mean Corpuscular Volume 95 fL (80-100); Mean Platelet Volume 9.9 fL (9.1-12.4); Platelet Count 188 K/mm3 (150-400); RDW Standard Deviation 48.1 fL (35.1-46.3); Red Blood Cell Count 4.05 M/mm3 (4.30-5.90); White Blood Cell Count 26.48 K/mm3 (4.00-11.30)
[2022-07-18] MEDS ORDERED: BASAGLAR K100 UNIT/3 SC (04:59)
[2022-07-18] MEDS ORDERED: ANTIFUNGAL30 GM TOP (05:01)
[2022-07-18 05:35] LABS: Albumin, Blood 3.2 g/dL (3.4-5.0); Albumin/Globulin Ratio 0.7 (0.8-1.8); Bilirubin, Total 0.5 mg/dL (0.1-1.0); Bun/Creatinine Ratio 23.4 (12.0-20.0); Calcium, Blood 8.4 mg/dL (8.5-10.1); Creatinine, Blood 1.45 mg/dL (0.60-1.20); Globulin, Blood 4.3 g/dL (2.2-4.0); Potassium, Blood 4.7 mmol/L (3.5-5.5); Total Protein, Blood 7.5 g/dL (6.4-8.2)
[2022-07-18 06:04] LABS: BAND PERCENT MAN 16 % (0-8); BASOPHILS PERCENT MAN 0 % (0-2); EOSINOPHILS PERCENT MAN 0 % (0-6); LYMPHOCYTES ABSOLUTE MAN 1.32 K/mm3 (0.84-5.20); LYMPHOCYTES PERCENT MAN 5 % (21-46); METAMYELOCYTE ABSOLUTE MAN 0.26 K/mm3 (0.00-0.00); METAMYELOCYTE PERCENT MAN 1 % (0-0); MONOCYTES ABSOLUTE MAN 2.11 K/mm3 (0.16-1.47); MONOCYTES PERCENT MAN 8 % (4-13); NEUTROPHILS ABSOLUTE MAN 22.77 K/mm3 (1.96-9.15); SEG NEUTROPHILS PERCENT MAN 70 % (41-73); TOTAL CELLS COUNTED 100
--- NOTE | 2022-07-18 07:40 | NUR ---
ASSUME CARE OF PATIENT AT 0715. CALLED DR FUNES REGARDING PATIENT REPEAT LACTIC VALUE OF 3.5 WAS DRAWN AT [address]39. DR FUNES WILL PLACE ORDER FOR SEPSIS PROTOCOL.
--- NOTE | 2022-07-18 18:21 | NUR ---
SHIFT SUMMARY: PATIENT A&OX4. PLEASANT & COOPERATIVE WITH CARE. VSS, ON RA WITH SPO2 OF 93-94 %. LUNGS SOUNDS HEARD WITH WHEEZES THROUGHOUT. RECEIVED ONE TIME DOSE OF LASIX. USE URINAL INDEPENDENTLY AT BEDSIDE. RECEIVED TWO SCHEDULED ANTIBIOTICS THIS SHIFT. PATIENT DENIES OF PAIN. TELE WAS D/C TODAY. UP WITH 1 ASSIST & FWW. UP IN CHAIR FOR DINNER. LEFT MEDIAL FOOT DRESSING CHANGED WITH XEROFOAM DRESSING APPLIED AND COVERED WITH MEPILEX. 20G IV TO LFA WNL, NS INFUSING AT 125 MLS/HR. CALL LIGHT IN REACH. WILL GIVE REPORT TO ONCOMING NOC RN.
--- NOTE | 2022-07-19 04:27 | NUR ---
SHIFT SUMMARY NO ACUTE CHANGES. PT WAS TIRED HE DID NOT SLEEP WELL LAST NIGHT. HE IS STILL ON RM AIR AND MAINTANING SATS AT 94%. HE DENIES PAIN AND SOB. BED IN LOWEST POSITION AND CALL LIGHT IN REACH
[2022-07-19 05:01] LABS: BASOPHILS ABSOLUTE AUTO 0.06 K/mm3 (0.00-0.23); BASOPHILS PERCENT AUTO 1 % (0-2); EOSINOPHILS ABSOLUTE AUTO 0.26 K/mm3 (0.00-0.68); EOSINOPHILS PERCENT AUTO 2 % (0-6); Hematocrit 36.3 % (37.0-53.0); Hemoglobin 11.6 g/dL (13.5-17.5); IMMATURE GRAN ABSOLUTE AUTO 0.08 K/mm3 (0.00-0.10); IMMATURE GRAN PERCENT AUTO 1 % (0-1); LYMPHOCYTES ABSOLUTE AUTO 2.71 K/mm3 (0.84-5.20); LYMPHOCYTES PERCENT AUTO 21 % (21-46); MONOCYTES ABSOLUTE AUTO 1.05 K/mm3 (0.16-1.47); MONOCYTES PERCENT AUTO 8 % (4-13); Mean Corpuscular HGB 30.4 pg (26.0-34.0); Mean Corpuscular Volume 95 fL (80-100); Mean Platelet Volume 9.5 fL (9.1-12.4); NEUTROPHILS ABSOLUTE AUTO 8.87 K/mm3 (1.96-9.15); NEUTROPHILS PERCENT AUTO 68 % (41-73); Platelet Count 165 K/mm3 (150-400); RDW Coefficient Variation 14.2 % (11.7-14.2); RDW Standard Deviation 49.6 fL (35.1-46.3); Red Blood Cell Count 3.81 M/mm3 (4.30-5.90); White Blood Cell Count 13.03 K/mm3 (4.00-11.30)
[2022-07-19 05:21] LABS: Bun/Creatinine Ratio 20.9 (12.0-20.0); Calcium, Blood 8.4 mg/dL (8.5-10.1); Creatinine, Blood 1.48 mg/dL (0.60-1.20); Potassium, Blood 4.3 mmol/L (3.5-5.5)
--- NOTE | 2022-07-19 18:32 | NUR ---
SHIFT SUMMARY: PATIENT A&OX4. PATIENT REPORT FEELING MUCH BETTER TODAY AND READY TO GO HOME. LUNGS CLEAR. DENIES SOB, PAIN/DISCOMFORT. HAS BEEN SITTING UP IN CHAIR THROUGHOUT SHIFT AND AMBULATING TO BATHROOM WITH SBA, FWW AND GAITBELT. RECEIVED 2 DOSE OF SCHEDULED ANTIBIOTIC, NS INFUSING @ 100 MLS/HR. PLAN TO DC PATIENT HOME AFTER PT/OT EVAL. CALL LIGHT IN REACH. WILL GIVE REPORT TO ONCOMING SOREN RN.
--- NOTE | 2022-07-20 01:07 | NUR ---
CALL TO HOSPITALIST JUAN FRANCISCO CONCERN FOR POTENTIAL FLUID OVERLOAD IN PATIENT WITH HISTORY OF CHF. PT HAS RECEIVED 5 LITERS OF IV FLUIDS SINCE ADMISSION FOR SEPSIS. FINE CRACKLES AUSCULTATED IN BILATERAL LUNG BASES AND NOTED 2-3+ BLE EDEMA. DYSPNEA WITH EXERTION. PT IS RECEIVING LASIX DAILY. REQUEST FOR REVIEW OF ORDER FOR IV FLUIDS. ORDER RECEIVED TO D/C IV FLUIDS.
[2022-07-20 05:05] LABS: BASOPHILS ABSOLUTE AUTO 0.05 K/mm3 (0.00-0.23); BASOPHILS PERCENT AUTO 1 % (0-2); EOSINOPHILS ABSOLUTE AUTO 0.34 K/mm3 (0.00-0.68); EOSINOPHILS PERCENT AUTO 4 % (0-6); Hematocrit 33.7 % (37.0-53.0); Hemoglobin 11.4 g/dL (13.5-17.5); IMMATURE GRAN ABSOLUTE AUTO 0.09 K/mm3 (0.00-0.10); IMMATURE GRAN PERCENT AUTO 1 % (0-1); LYMPHOCYTES ABSOLUTE AUTO 2.18 K/mm3 (0.84-5.20); LYMPHOCYTES PERCENT AUTO 24 % (21-46); MONOCYTES ABSOLUTE AUTO 0.91 K/mm3 (0.16-1.47); MONOCYTES PERCENT AUTO 10 % (4-13); Mean Corpuscular HGB 30.9 pg (26.0-34.0); Mean Corpuscular HGB Conc 33.8 g/dL (31.5-36.5); Mean Corpuscular Volume 91 fL (80-100); NEUTROPHILS ABSOLUTE AUTO 5.55 K/mm3 (1.96-9.15); NEUTROPHILS PERCENT AUTO 61 % (41-73); Platelet Count 184 K/mm3 (150-400); RDW Coefficient Variation 13.7 % (11.7-14.2); RDW Standard Deviation 46.1 fL (35.1-46.3); Red Blood Cell Count 3.69 M/mm3 (4.30-5.90); White Blood Cell Count 9.12 K/mm3 (4.00-11.30)
--- NOTE | 2022-07-20 05:24 | NUR ---
NO ACUTE EVENTS OVERNIGHT LAST NIGHT. MR. IQBAL WAS UP IN THE CHAIR UNTIL HE WAS READY TO GO TO SLEEP AROUND 2300. FINE CRACKLES AUSCULTATED DURING MY ASSESSMENT AND AGAIN AROUND 0030. BILATERAL LOWER & UPPER EXTREMITY EDEMA. SEE PREVIOUS NURSE NOTE. IVF D/C'd
[2022-07-20 05:27] LABS: Bun/Creatinine Ratio 24.6 (12.0-20.0); Calcium, Blood 8.5 mg/dL (8.5-10.1); Creatinine, Blood 1.18 mg/dL (0.60-1.20); Potassium, Blood 4.5 mmol/L (3.5-5.5)
[2022-07-20] MEDS ORDERED: Acetaminophen325 M1 PO (09:28)
[2022-07-20] MEDS ORDERED: CEFP200 PO (09:28)
[2022-07-20] MEDS ORDERED: DOXY100 PO (09:29)
[2022-07-20] MEDS ORDERED: VISBIOME 112.51 EACH PO (09:29)
--- NOTE | 2022-07-20 12:20 | NUR ---
PARTIAL SHIFT SUMMARY- PT D/C AROUND NOON. PT PLEASANT EAGER TO D/C. APPETITE GOOD. VSS. COUGH PRODUCTIVE, YELLOW. EDEMA X2 BLE. NO ACUTE CHANGES. PT WITH CALL LIGHT IN REACH THROUGHOUT SHIFT. D/C PT EDUCATED ON PAPERWORK PACKET. ALL BELONGNGS IN HAND UPON D/C. PT WHEELCHAIR TRANSPORTED TO [facility] TO HOME.
== END 2022-07-20 12:11 | disposition home health service (06) | DRG 871 ==
LOC: ER 23:25 → MEDS 07-18 00:59
PROVIDERS: Family Medicine; Student in an Organized Health Care Education/Training Program; ADMIT Internal Medicine
DX: A41.9 Sepsis, unspecified organism (principal); J18.9 Pneumonia, unspecified organism; J96.21 Acute and chronic respiratory failure with hypoxia; J44.0 Chronic obstructive pulmonary disease with (acute) lower respiratory infection; I50.42 Chronic combined systolic (congestive) and diastolic (congestive) heart failure; I13.0 Hypertensive heart and chronic kidney disease with heart failure and stage 1 through stage 4 chronic kidney disease, or unspecified chronic kidney disease; E87.2 Acidosis; Z20.822 Contact with and (suspected) exposure to COVID-19; R65.20 Severe sepsis without septic shock; N18.30 Chronic kidney disease, stage 3 unspecified; E11.40 Type 2 diabetes mellitus with diabetic neuropathy, unspecified; E83.42 Hypomagnesemia; N40.0 Benign prostatic hyperplasia without lower urinary tract symptoms; K21.9 Gastro-esophageal reflux disease without esophagitis; E03.9 Hypothyroidism, unspecified; E11.22 Type 2 diabetes mellitus with diabetic chronic kidney disease; E11.51 Type 2 diabetes mellitus with diabetic peripheral angiopathy without gangrene; Z85.118 Personal history of other malignant neoplasm of bronchus and lung; Z89.431 Acquired absence of right foot; Z90.49 Acquired absence of other specified parts of digestive tract; Z90.2 Acquired absence of lung [part of]; Z95.1 Presence of aortocoronary bypass graft; Z88.8 Allergy status to other drugs, medicaments and biological substances; Z79.82 Long term (current) use of aspirin; Z79.4 Long term (current) use of insulin; Z79.899 Other long term (current) drug therapy; W18.39XA Other fall on same level, initial encounter; Y92.009 Unspecified place in unspecified non-institutional (private) residence as the place of occurrence of the external cause
CPT/HCPCS: 0241U; 36415; 71045; 80048; 80053; 82947; 83605; 83735; 83880; 84145; 84484; 85025; 87040; 93005; 93010; 94640; 94664; 94667; 96365; 96375; 97162; 97530; 98960; 99285-25; A9270; J0696; J1650; J1815; J1940; J7030

== ENCOUNTER 2022-08-01 03:46 | Day surgery (SDC) | payer OTHER ==
[~2022-08-01 03:46] MED LIST changes: +ANTIFUNGAL30 GM TOP; +Acetaminophen325 M1 PO; +BASAGLAR K100 UNIT/3 SC; +CEFP200 PO; +DOXY100 PO; +FINA5 PO; +VISBIOME 112.51 EACH PO
== END 2022-08-01 22:52 | disposition home or self-care (01) ==
LOC: WOUND 03:46
DX: E11.621 Type 2 diabetes mellitus with foot ulcer (principal); L97.519 Non-pressure chronic ulcer of other part of right foot with unspecified severity; L97.522 Non-pressure chronic ulcer of other part of left foot with fat layer exposed; E11.59 Type 2 diabetes mellitus with other circulatory complications; Z89.412 Acquired absence of left great toe
CPT/HCPCS: G0463

== ENCOUNTER 2022-09-26 02:22 | Day surgery (SDC) | payer OTHER | END 2022-09-26 22:50 | disposition home or self-care (01) | LOC: WOUND 02:22 | DX: E11.621 Type 2 diabetes mellitus with foot ulcer (principal); L97.522 Non-pressure chronic ulcer of other part of left foot with fat layer exposed; L97.422 Non-pressure chronic ulcer of left heel and midfoot with fat layer exposed; L97.519 Non-pressure chronic ulcer of other part of right foot with unspecified severity; E11.59 Type 2 diabetes mellitus with other circulatory complications; E11.42 Type 2 diabetes mellitus with diabetic polyneuropathy; Z89.412 Acquired absence of left great toe; Z86.14 Personal history of Methicillin resistant Staphylococcus aureus infection | CPT/HCPCS: A9270 ==

== ENCOUNTER 2022-10-03 02:27 | Day surgery (SDC) | payer OTHER | END 2022-10-03 23:40 | disposition home or self-care (01) | LOC: WOUND 02:27 | DX: T81.32XA Disruption of internal operation (surgical) wound, not elsewhere classified, initial encounter (principal); E11.621 Type 2 diabetes mellitus with foot ulcer; L97.522 Non-pressure chronic ulcer of other part of left foot with fat layer exposed; L89.892 Pressure ulcer of other site, stage 2; Z89.412 Acquired absence of left great toe | CPT/HCPCS: A9270 ==

== ENCOUNTER 2022-10-24 01:55 | Day surgery (SDC) | payer OTHER | END 2022-10-24 23:07 | disposition home or self-care (01) | LOC: WOUND 01:55 | DX: E11.621 Type 2 diabetes mellitus with foot ulcer (principal); L97.522 Non-pressure chronic ulcer of other part of left foot with fat layer exposed; L97.519 Non-pressure chronic ulcer of other part of right foot with unspecified severity; L89.892 Pressure ulcer of other site, stage 2; E11.59 Type 2 diabetes mellitus with other circulatory complications; E11.40 Type 2 diabetes mellitus with diabetic neuropathy, unspecified; Z89.412 Acquired absence of left great toe | CPT/HCPCS: A9270; G0463 ==

== ENCOUNTER 2022-11-07 06:03 | Day surgery (SDC) | payer OTHER | END 2022-11-07 23:00 | disposition home or self-care (01) | LOC: WOUND 06:03 | DX: T81.32XA Disruption of internal operation (surgical) wound, not elsewhere classified, initial encounter (principal); Y84.8 Other medical procedures as the cause of abnormal reaction of the patient, or of later complication, without mention of misadventure at the time of the procedure; Z89.412 Acquired absence of left great toe; E11.621 Type 2 diabetes mellitus with foot ulcer; E11.59 Type 2 diabetes mellitus with other circulatory complications; L97.519 Non-pressure chronic ulcer of other part of right foot with unspecified severity; L97.522 Non-pressure chronic ulcer of other part of left foot with fat layer exposed | CPT/HCPCS: A9270; G0463 ==

== ENCOUNTER 2022-11-21 01:11 | Day surgery (SDC) | payer OTHER | END 2022-11-21 23:57 | disposition home or self-care (01) | LOC: WOUND 01:11 | DX: E11.621 Type 2 diabetes mellitus with foot ulcer (principal); L97.522 Non-pressure chronic ulcer of other part of left foot with fat layer exposed; L97.519 Non-pressure chronic ulcer of other part of right foot with unspecified severity; E11.59 Type 2 diabetes mellitus with other circulatory complications; Z89.412 Acquired absence of left great toe | CPT/HCPCS: G0463 ==

== ENCOUNTER 2022-12-12 04:13 | Day surgery (SDC) | payer OTHER | END 2022-12-12 23:06 | disposition home or self-care (01) | LOC: WOUND 04:13 | DX: E11.621 Type 2 diabetes mellitus with foot ulcer (principal); L97.522 Non-pressure chronic ulcer of other part of left foot with fat layer exposed; E11.59 Type 2 diabetes mellitus with other circulatory complications; Z89.412 Acquired absence of left great toe | CPT/HCPCS: A9270 ==

== ENCOUNTER 2022-12-26 01:40 | Day surgery (SDC) | payer OTHER | END 2022-12-26 22:53 | disposition home or self-care (01) | LOC: WOUND 01:40 | DX: E11.621 Type 2 diabetes mellitus with foot ulcer (principal); L97.522 Non-pressure chronic ulcer of other part of left foot with fat layer exposed; L97.519 Non-pressure chronic ulcer of other part of right foot with unspecified severity; E11.59 Type 2 diabetes mellitus with other circulatory complications; Z89.412 Acquired absence of left great toe | CPT/HCPCS: G0463 ==

== ENCOUNTER 2023-01-17 03:34 | Day surgery (SDC) | payer OTHER | END 2023-01-17 22:40 | disposition home or self-care (01) | LOC: WOUND 03:34 | DX: E11.621 Type 2 diabetes mellitus with foot ulcer (principal); L97.522 Non-pressure chronic ulcer of other part of left foot with fat layer exposed; L97.519 Non-pressure chronic ulcer of other part of right foot with unspecified severity; E11.59 Type 2 diabetes mellitus with other circulatory complications; Z89.412 Acquired absence of left great toe | CPT/HCPCS: A9270; G0463 ==

== ENCOUNTER 2023-03-06 02:25 | Day surgery (SDC) | payer OTHER | END 2023-03-06 23:00 | disposition home or self-care (01) | LOC: WOUND 02:25 | DX: T81.32XA Disruption of internal operation (surgical) wound, not elsewhere classified, initial encounter (principal); E10.42 Type 1 diabetes mellitus with diabetic polyneuropathy; E10.621 Type 1 diabetes mellitus with foot ulcer; Z89.412 Acquired absence of left great toe; L97.519 Non-pressure chronic ulcer of other part of right foot with unspecified severity; L97.522 Non-pressure chronic ulcer of other part of left foot with fat layer exposed | CPT/HCPCS: A9270 ==

== ENCOUNTER 2023-03-13 02:47 | Day surgery (SDC) | payer OTHER | END 2023-03-13 22:49 | disposition home or self-care (01) | LOC: WOUND 02:47 | DX: T81.32XA Disruption of internal operation (surgical) wound, not elsewhere classified, initial encounter (principal); E11.621 Type 2 diabetes mellitus with foot ulcer; Z89.412 Acquired absence of left great toe; L97.519 Non-pressure chronic ulcer of other part of right foot with unspecified severity; L97.522 Non-pressure chronic ulcer of other part of left foot with fat layer exposed | CPT/HCPCS: A9270; G0463 ==

== ENCOUNTER 2023-03-20 01:21 | Day surgery (SDC) | payer OTHER | END 2023-03-20 23:01 | disposition home or self-care (01) | LOC: WOUND 01:21 | DX: T81.31XA Disruption of external operation (surgical) wound, not elsewhere classified, initial encounter (principal); E11.621 Type 2 diabetes mellitus with foot ulcer; L97.522 Non-pressure chronic ulcer of other part of left foot with fat layer exposed; L97.519 Non-pressure chronic ulcer of other part of right foot with unspecified severity; E11.59 Type 2 diabetes mellitus with other circulatory complications; Y83.8 Other surgical procedures as the cause of abnormal reaction of the patient, or of later complication, without mention of misadventure at the time of the procedure; Z89.412 Acquired absence of left great toe | CPT/HCPCS: A9270; G0463 ==

== ENCOUNTER 2023-04-03 03:27 | Day surgery (SDC) | payer OTHER | END 2023-04-03 22:41 | disposition home or self-care (01) | LOC: WOUND 03:27 | DX: E11.621 Type 2 diabetes mellitus with foot ulcer (principal); L97.522 Non-pressure chronic ulcer of other part of left foot with fat layer exposed; T81.31XA Disruption of external operation (surgical) wound, not elsewhere classified, initial encounter; Y83.9 Surgical procedure, unspecified as the cause of abnormal reaction of the patient, or of later complication, without mention of misadventure at the time of the procedure; E11.59 Type 2 diabetes mellitus with other circulatory complications; E11.42 Type 2 diabetes mellitus with diabetic polyneuropathy; Z89.412 Acquired absence of left great toe | CPT/HCPCS: G0463 ==

== ENCOUNTER 2023-04-17 00:38 | Day surgery (SDC) | payer OTHER | END 2023-04-17 22:52 | disposition home or self-care (01) | LOC: WOUND 00:38 | DX: E11.621 Type 2 diabetes mellitus with foot ulcer (principal); L97.522 Non-pressure chronic ulcer of other part of left foot with fat layer exposed; E11.59 Type 2 diabetes mellitus with other circulatory complications; Z89.412 Acquired absence of left great toe | CPT/HCPCS: G0463 ==

== ENCOUNTER 2023-05-08 03:32 | Day surgery (SDC) | payer OTHER | END 2023-05-08 22:46 | disposition home or self-care (01) | LOC: WOUND 03:32 | DX: E11.621 Type 2 diabetes mellitus with foot ulcer (principal); L97.522 Non-pressure chronic ulcer of other part of left foot with fat layer exposed; Z89.412 Acquired absence of left great toe; T81.30XA Disruption of wound, unspecified, initial encounter | CPT/HCPCS: G0463 ==

== ENCOUNTER 2023-06-05 04:41 | Day surgery (SDC) | payer OTHER | END 2023-06-05 22:43 | disposition home or self-care (01) | LOC: WOUND 04:41 | DX: T81.31XD Disruption of external operation (surgical) wound, not elsewhere classified, subsequent encounter (principal); E11.621 Type 2 diabetes mellitus with foot ulcer; L97.522 Non-pressure chronic ulcer of other part of left foot with fat layer exposed; E11.59 Type 2 diabetes mellitus with other circulatory complications; Z89.412 Acquired absence of left great toe; Y83.8 Other surgical procedures as the cause of abnormal reaction of the patient, or of later complication, without mention of misadventure at the time of the procedure | CPT/HCPCS: G0463 ==

== ENCOUNTER 2023-06-19 04:10 | Day surgery (SDC) | payer OTHER | END 2023-06-19 23:03 | disposition home or self-care (01) | LOC: WOUND 04:10 | DX: Z48.00 Encounter for change or removal of nonsurgical wound dressing (principal); Z89.412 Acquired absence of left great toe | CPT/HCPCS: G0463 ==

== ENCOUNTER 2023-08-23 03:50 | Emergency (ER) | payer OTHER ==
[~2023-08-23] VITALS: Ht 190.5 cm; Wt 106.1 kg
[~2023-08-23 03:50] MED LIST changes: -ATOR40TA PO; +ATOR40TA PT; -Acetaminophen325 M1 PO; +Acetaminophen325 M1 PT; +DULCOLAX400 MG/5 M PT; +Docusate S50 MG/5 ML PT; +ELIQUIS5 M2 PT; -FURO20 PO; +FURO20 PT; -Flomax0.4 MG PO; +Flomax0.4 MG PT; -GABA300 PO; +GABA300 PT; -GLUCOSE4 GM PO; +GLUCOSE4 GM PT; +HUMULIN R100 UNIT/2 SC; +HYDROCODONE-AC1 EA10 PT; +IPRAT-ALBUT 0.5-3 ML INH; -LEVSOD100 PO; +LEVSOD100 PT; +LIQUACEL PT; -MAGNESIUM OXID500 MG PO; +MAGNESIUM OXID500 MG PT; +METO50 PT; -OMEP20ER PO; +OMEP20ER PT; +Prednisone10 MG PT; +Primidone50 MG PO; +QUET25 PT; +STIOLTO RESPIMAT4 G1 INH; +SYNJARDY 12.5-1 EAC3 PT; -THERA-D2000 UNIT PO; +THERA-D2000 UNIT PT
[2023-08-23 04:59] LABS: BASOPHILS ABSOLUTE AUTO 0.05 K/mm3 (0.00-0.23); BASOPHILS PERCENT AUTO 0 % (0-2); EOSINOPHILS PERCENT AUTO 1 % (0-6); Hematocrit 33.1 % (37.0-53.0); Hemoglobin 10.5 g/dL (13.5-17.5); IMMATURE GRAN ABSOLUTE AUTO 0.13 K/mm3 (0.00-0.10); IMMATURE GRAN PERCENT AUTO 1 % (0-1); LYMPHOCYTES PERCENT AUTO 10 % (21-46); MONOCYTES ABSOLUTE AUTO 0.87 K/mm3 (0.16-1.47); MONOCYTES PERCENT AUTO 6 % (4-13); Mean Corpuscular HGB 31.7 pg (26.0-34.0); Mean Corpuscular HGB Conc 31.7 g/dL (31.5-36.5); Mean Corpuscular Volume 100 fL (80-100); Mean Platelet Volume 9.7 fL (9.1-12.4); NEUTROPHILS ABSOLUTE AUTO 11.47 K/mm3 (1.96-9.15); NEUTROPHILS PERCENT AUTO 82 % (41-73); Platelet Count 284 K/mm3 (150-400); RDW Coefficient Variation 19.6 % (11.7-14.2); RDW Standard Deviation 72.1 fL (35.1-46.3); Red Blood Cell Count 3.31 M/mm3 (4.30-5.90); White Blood Cell Count 14.02 K/mm3 (4.00-11.30)
[2023-08-23 05:18] LABS: Albumin, Blood 2.9 g/dL (3.4-5.0); Albumin/Globulin Ratio 0.6 (0.8-1.8); Bilirubin, Total 0.9 mg/dL (0.1-1.0); Bun/Creatinine Ratio 44.3 (12.0-20.0); Calcium, Blood 9.2 mg/dL (8.5-10.1); Creatinine, Blood 0.88 mg/dL (0.60-1.20); Globulin, Blood 4.7 g/dL (2.2-4.0); Potassium, Blood 3.9 mmol/L (3.5-5.5); Prothrombin Time Results 10.5 Sec (9.7-11.5); Total Protein, Blood 7.6 g/dL (6.4-8.2)
[2023-08-23 05:30] VITALS: BP 127/69
[2023-08-23] MEDS ORDERED: LEVOFLOXACIN750 MG PT (06:59)
[2023-08-25] MEDS ORDERED: ASPI81CH PO (13:04)
[2023-08-25] MEDS ORDERED: ASPI81CH PT (13:04)
[2023-08-25] MEDS ORDERED: KONVOMEP 2-84 M90 ML (13:08)
[2023-08-27] MEDS ORDERED: DOXA1 PT (12:58)
[2023-08-27] MEDS ORDERED: LEVO750 PT (12:59)
[2023-08-27] MEDS ORDERED: LISI5 PT (13:00)
[2023-08-27] MEDS ORDERED: VISBIOME 112.51 EACH PT (13:01)
== END 2023-08-23 09:32 | disposition home or self-care (01) ==
LOC: ER 03:50
PROVIDERS: Student in an Organized Health Care Education/Training Program
DX: K92.0 Hematemesis (principal); R04.2 Hemoptysis; D72.829 Elevated white blood cell count, unspecified; J96.21 Acute and chronic respiratory failure with hypoxia; Z88.8 Allergy status to other drugs, medicaments and biological substances; Z79.899 Other long term (current) drug therapy; Z79.82 Long term (current) use of aspirin; Z79.4 Long term (current) use of insulin; I25.2 Old myocardial infarction; I50.9 Heart failure, unspecified; Z87.891 Personal history of nicotine dependence; J44.9 Chronic obstructive pulmonary disease, unspecified; K21.9 Gastro-esophageal reflux disease without esophagitis; I48.91 Unspecified atrial fibrillation; N18.30 Chronic kidney disease, stage 3 unspecified; I25.10 Atherosclerotic heart disease of native coronary artery without angina pectoris; E11.22 Type 2 diabetes mellitus with diabetic chronic kidney disease; I13.0 Hypertensive heart and chronic kidney disease with heart failure and stage 1 through stage 4 chronic kidney disease, or unspecified chronic kidney disease
CPT/HCPCS: 71260; 74177; 80053; 83735; 84145; 85025; 85610; 85730; 93005; 93010; 94640; 94664; 96365; 96366; 96375; 99285-25; A9270; J1956; J2270; J2405; Q9967

== ENCOUNTER 2023-09-25 08:29 | Inpatient (IN) | payer OTHER ==
[~2023-09-25] VITALS: Ht 182.9 cm; Wt 108.2 kg
[2023-09-25] VITALS (57 sets, daily range): BP systolic 76–144; BP diastolic 41–65
[~2023-09-25 08:29] MED LIST changes: +ASPI81CH PO; +ASPI81CH PT; +DOXA1 PT; +KONVOMEP 2-84 M90 ML; +LEVO750 PT; +LEVOFLOXACIN750 MG PT; +LISI5 PT; +VISBIOME 112.51 EACH PT
[2023-09-25 08:54] LABS: Hematocrit 34.3 % (37.0-53.0); Hemoglobin 10.2 g/dL (13.5-17.5); Mean Corpuscular HGB 31.3 pg (26.0-34.0); Mean Corpuscular HGB Conc 29.7 g/dL (31.5-36.5); Mean Corpuscular Volume 105 fL (80-100); Mean Platelet Volume 10.8 fL (9.1-12.4); NRBC ABSOLUTE 0.06 K/mm3 (0.00-0.02); NRBC Auto 0.3 /100 WBC (0.0-0.2); Platelet Count 344 K/mm3 (150-400); RDW Coefficient Variation 16.9 % (11.7-14.2); RDW Standard Deviation 66.2 fL (35.1-46.3); Red Blood Cell Count 3.26 M/mm3 (4.30-5.90); White Blood Cell Count 21.41 K/mm3 (4.00-11.30)
[2023-09-25 08:55] LABS: Calcium, Ionized (POC) 1.07 mmol/L (1.10-1.46); Chloride (POC) 89 mmol/L (98-108); Creatinine (POC) 2.4 mg/dL (0.8-1.3); Glucose (ISTAT POC) 357 mg/dL (70-99); Hemoglobin (POC) 11.9 g/dL (13.5-17.5); Potassium (POC) 4.3 mmol/L (3.5-5.5); Sodium (POC) 130 mmol/L (135-148); Total CO2 (POC) 26 mmol/L (21-32)
[2023-09-25 09:12] LABS: BAND PERCENT MAN 6 % (0-8); BASOPHILS PERCENT MAN 0 % (0-2); EOSINOPHILS ABSOLUTE MAN 0.21 K/mm3 (0.00-0.68); EOSINOPHILS PERCENT MAN 1 % (0-6); LYMPHOCYTES ABSOLUTE MAN 2.35 K/mm3 (0.84-5.20); LYMPHOCYTES PERCENT MAN 11 % (21-46); METAMYELOCYTE ABSOLUTE MAN 0.64 K/mm3 (0.00-0.00); METAMYELOCYTE PERCENT MAN 3 % (0-0); MONOCYTES ABSOLUTE MAN 0.85 K/mm3 (0.16-1.47); MONOCYTES PERCENT MAN 4 % (4-13); MYELOCYTE ABSOLUTE MAN 0.21 K/mm3 (0.00-0.00); MYELOCYTE PERCENT MAN 1 % (0-0); NEUTROPHILS ABSOLUTE MAN 17.12 K/mm3 (1.96-9.15); SEG NEUTROPHILS PERCENT MAN 74 % (41-73); TOTAL CELLS COUNTED 100
[2023-09-25 09:16] LABS: Alanine Aminotransfer (ALT/SGP 36 U/L (12-78); Albumin, Blood 2.6 g/dL (3.4-5.0); Albumin/Globulin Ratio 0.6 (0.8-1.8); Alk Phos 69 U/L (50-136); Anion Gap 14 mmol/L (6-16); Aspartate Aminotrans (AST/SGOT 37 U/L (12-37); Bilirubin, Total 0.4 mg/dL (0.1-1.0); Blood Urea Nitrogen 47 mg/dL (8-24); CO2, Blood 25 mmol/L (21-32); Calcium, Blood 8.9 mg/dL (8.5-10.1); Chloride, Blood 94 mmol/L (98-108); Creatinine, Blood 2.24 mg/dL (0.60-1.20); Globulin, Blood 4.4 g/dL (2.2-4.0); Glomerular Filtration Rate 30 (60-); Glucose, Blood 349 mg/dL (70-99); Potassium, Blood 4.4 mmol/L (3.5-5.5); Sodium, Blood 133 mmol/L (136-145)
--- NOTE | 2023-09-25 10:45 | NUR ---
INITIAL ASSESSMENT PATIENT ARRIVED FROM ED INTUBATED, NOT ON SEDATION. PATIENT UNRESPONSIVE. UPWARD GAZE NOTED. PUPILS 2+ IN SIZE, NON REACTIVE TO LIGHT. MYOCLONIC JERKING NOTED. ED REPORTED THAT ATIVAN GIVEN FOR JERKING BUT DID NOT HELP. NO COUGH, GAG, OR SWALLOW REFLEXES NOTED. PATIENT AFEBRILE. NO SIGNS OF PAIN NOTED. PATIENT ON VENT SETTINGS OF AC 16, TV 500, PEEP 10 AND FIO2 OF 100%. LUNGS COARSE THROUGHOUT. ED STATED THAT THEY RECEIVED REPORT THAT IT IS NORMAL FOR PATIENT TO COUGH UP BLOOD AT HOME. ETT 8.0, [address], HR IN THE 1-TEENS. SBP IN THE 90S. PATIENT ON DOPAMINE AT 20 MCG/ KG/ MINUTE. PEG TUBE IN PLACE; HOOKED TO LIS SUCTION; DRAINING GREEN LIQUID. ABD MODERATELY DISTENDED, SOFT, WITH HYPOACTIVE BOWEL SOUNDS NOTED. DATE OF LAST BM UNKNOWN. VIDAL DRAINING SMALL AMOUNT OF CALLIE COLORED URINE. TOES AMPUTATED ON BILAT FEET. REDDENED DEANNA/ GROIN FOLDS NOTED. COCCYX REDDENED AND WITH 2 ABRASIONS NOTED; PICS IN PATIENT CHART. BED LOW, CALL LIGHT IN REACH. CARE CONTINUES.
[2023-09-25 14:59] LABS: Source, Urine Foley catheter
[2023-09-25 15:13] LABS: Appearance, Urine Cloudy (Clear); Bilirubin, Urine Neg (Neg); Blood, Urine 3+ (Neg); Color, Urine Yellow (P-Yellow); Glucose Qualitative, Urine 4+ (Neg); Ketones, Urine Neg (Neg); Leukocyte Esterase, Urine Neg (Neg); Nitrite, Urine Neg (Neg); Protein, Urine 3+ (Neg); Urobilinogen, Urine 1+ (Normal)
[2023-09-25 15:33] LABS: Bacteria Few /hpf; Squamous Epithelial Cells Few /hpf (Few); Transitional Epithelial Cells Few /hpf (0-Rare)
[2023-09-25 15:35] LABS: Renal Epithelial Rare /hpf (0-Rare)
--- NOTE | 2023-09-25 16:10 | NUR ---
Pt in ICU on vent curently getting EEG. Pt tremoulous. In past visits many conversations with about prognosis. She has had poor insight and shown great sress and frailty. Pt lps score is 20%. Will have chaplian speak with . This gentlman has had great suffering hope is we can give him some comfort.
--- NOTE | 2023-09-25 16:31 | NUR ---
PATIENT HAS TEMP OF 99.1 DEGREES FAHRENHEIT. PATIENT NOW ON 60% FIO2. HR IN THE 120S. SBP IN THE LOW 100S. PRESSORS CONTINUING TO BE TITRATED UP TO SUPPORT BP.
--- NOTE | 2023-09-25 19:15 | NUR ---
SHIFT SUMMARY PATIENT REMAINED INTUBATED. PATIENT ON SMALL AMOUNT OF PROPOFOL FOR MYOCLONIC JERKS. PATIENT CONTINUES TO HAVE UPWARD GAZE. PUPILS NON REACTIVE WHEN FIRST CAME TO UNIT; PUPILS SLUGGISH NOW. TEMP INCREASING; COOLING BLANKET, ICE AND FAN PLACED TO KEEP PATIENT NORMOTHERMIC. DR. MUNGUIA AWARE OF TEMP INCREASING. PATIENT ON AC 16, TV 500, PEEP 10 AND 50% FIO2. FIO2 DOWN FROM 100%. LUNGS REMAINED COARSE THROUGHOUT. PATIENT SR TO ST. PATIENT TITRATED OFF DOPAMINE INCREASED HR. PATIENT CURRENTLY ON LEVOPHED AT 20 MCG/ MINUTE, NEOSYNEPHRINE AT 150 MCG/ MINUTE, VASOPRESSIN AT 0.04 UNITS/ MINUTE. PATIENT HAS RECEIVED 1 L BOLUS EACH OF NS AND LR. NS INFUSING AT 100 MLS/ HOUR. PEG TUBE REMAINED TO LIS DRAINING GREEN LIQUID. VIDAL DRAINED ONLY 80 MLS OF CALLIE COLORED URINE; DR. MUNGUIA AWARE OF POOR OUTPUT. PATIENT HAD ONE SMALL SOFT BM AT END OF SHIFT. NO CHANGES TO SKIN NOTED. PATIENT REPOSITIONED Q2H. CT OF HEAD AND ABD/CHEST PERFORMED THIS SHIFT. EEG PERFORMED THIS SHIFT. DVT STUDY OF LEGS PERFORMED THIS SHIFT. SPUTUM SENT TO LAB. PICC PLACED THIS SHIFT. IN AND OUT TO SEE PATIENT THIS SHIFT. BED LOW, CALL LIGHT IN REACH. REPORT HAS BEEN GIVEN TO ASSUMING CLOTH TESTER NURSE.
--- NOTE | 2023-09-25 23:11 | NUR ---
ASSUMED CARE CARE WAS ASSUMED OF PT AT 1900, REPORT GIVEN BY LYODA CALVO. PT INTUBATED AND SEDATED. PROPOFOL @ 15 MCG/KG/MIN. PT HAVING MYOCLONIC JERKS. PT SLIGHTLY FLEXES INWARD WHEN PAIN STIMULI APPLIED TO NAILBEDS IN UE. PT HAS NO RESPONSE TO STIMULI IN LE. PT'S RIGHT EYE UPWARD FIXED GAZE. PT'S EYES NOT TRACKING WITH HEAD MOVEMENT. VENT SETTINGS AC/VC 16/500/12/100%. PT DESATTING WITH ETT SUCTION, RECOVERS SLOWLY. O2 SATS > 95% ONCE RECOVERED. CARDIAC MONITORING REFLECTS NSR WITH PVCs. LEVOPHED, VASOPRESSIN, AND NEOSYNEPHRINE INFUSING WITH MAP GOAL > 65. SEE FLOW SHEET FOR TITRATIONS. RECTAL TUBE PLACED AT SHIFT CHANGE D/T LARGE AMOUNT OF LOOSE STOOL. VIDAL PATENT DRAINING TO GRAVITY. ESOPHAGEAL TEMP PROBE PRESENT, COOLING BLANKET APPLIED FOR TEMP GOAL < 98.6.
[2023-09-26] VITALS (104 sets, daily range): BP systolic 91–168; BP diastolic 34–115
[2023-09-26 03:57] LABS: Hematocrit 29.5 % (37.0-53.0); Hemoglobin 9.4 g/dL (13.5-17.5); Mean Corpuscular HGB 31.2 pg (26.0-34.0); Mean Corpuscular HGB Conc 31.9 g/dL (31.5-36.5); Mean Platelet Volume 10.8 fL (9.1-12.4); NRBC ABSOLUTE 0.02 K/mm3 (0.00-0.02); NRBC Auto 0.1 /100 WBC (0.0-0.2); Platelet Count 318 K/mm3 (150-400); RDW Coefficient Variation 16.5 % (11.7-14.2); RDW Standard Deviation 59.3 fL (35.1-46.3); Red Blood Cell Count 3.01 M/mm3 (4.30-5.90); White Blood Cell Count 34.75 K/mm3 (4.00-11.30)
[2023-09-26 03:59] LABS: Albumin/Globulin Ratio 0.6 (0.8-1.8); Bilirubin, Total 0.4 mg/dL (0.1-1.0); Bun/Creatinine Ratio 20.6 (12.0-20.0); Calcium, Blood 7.1 mg/dL (8.5-10.1); Creatinine, Blood 2.53 mg/dL (0.60-1.20); Globulin, Blood 3.6 g/dL (2.2-4.0); Magnesium, Blood 1.7 mg/dL (1.6-2.4); Phosphorus, Blood 4.4 mg/dL (2.5-4.9); Total Protein, Blood 5.6 g/dL (6.4-8.2)
[2023-09-26 04:02] LABS: Mean Corpuscular Volume 98 fL (80-100)
[2023-09-26 04:06] LABS: BAND PERCENT MAN 16 % (0-8); BASOPHILS ABSOLUTE MAN 0.34 K/mm3 (0.00-0.23); BASOPHILS PERCENT MAN 1 % (0-2); EOSINOPHILS PERCENT MAN 0 % (0-6); LYMPHOCYTES ABSOLUTE MAN 0.34 K/mm3 (0.84-5.20); LYMPHOCYTES PERCENT MAN 1 % (21-46); METAMYELOCYTE ABSOLUTE MAN 2.43 K/mm3 (0.00-0.00); METAMYELOCYTE PERCENT MAN 7 % (0-0); MONOCYTES ABSOLUTE MAN 1.39 K/mm3 (0.16-1.47); MONOCYTES PERCENT MAN 4 % (4-13); MYELOCYTE ABSOLUTE MAN 1.04 K/mm3 (0.00-0.00); MYELOCYTE PERCENT MAN 3 % (0-0); NEUTROPHILS ABSOLUTE MAN 29.19 K/mm3 (1.96-9.15); SEG NEUTROPHILS PERCENT MAN 68 % (41-73); TOTAL CELLS COUNTED 100
--- NOTE | 2023-09-26 06:36 | NUR ---
SHIFT SUMMARY PT REMAINS INTUBATED AND SEDATED. PROPOFOL @ 15 MCG/KG/MIN. DR. MUNGUIA AT BEDSIDE EARLY THIS MORNING, GAVE VERBAL CONFIRMATION TO NOT DO SEDATION VACATION THIS SHIFT. VENT SETTINGS AC/VC 16/500/10/70%. O2 SATS REMAIN > 95%. THICK LUTZ SECRETIONS NOTED IN ETT SUCTION TUBING. PT HAVING LARGE AMOUNTS OF ORAL SECRETIONS, ORAL CARE PERFORMED NEEDED. CARDIAC MONITORING REFLECTS NSR WITH PVCs. LEVOPHED, VASOPRESSIN, NEOSYNEPHRINE INFUSING FOR MAP GOAL > 65. TITRATED VASOACTIVE MEDICATIONS DOWN SIGNIFICANTLY THROUGH THE NIGHT. SEE FLOW-CHART FOR TITRATIONS. NS INFUSING @ 100 ML/HR. COOLING WRAP APPLIED TO PT FOR GOAL OF TEMP < 98.6. RECTAL TUBE CAME OUT WITH LAST TURN, NOT REPLACED. VIDAL PATENT AND DRAINING TO GRAVITY. PEG TUB SET TO LIS. DRAINING GREEN FLUID.
--- NOTE | 2023-09-26 07:00 | NUR ---
ASSUMPTION OF CARE: ASSUMED CARE OF PATIENT WITH ANUP MENDOZA. PATIENT LYING IN BED. PATIENT NON RESPONSIVE TO VERBAL STIMULI. EYELIDS ARE HALF OPEN. NO CORNEAL RESPONSE NOTED. RIGHT PUPIL IS BRISK AND LEFT PUPIL IS SLUGGISH. PATIENT ROTATES ARMS IN RESPONSE TO NOXIOUS NAIL BED STIMULI. NO RESPONSE NOTED WITH NOXIOUS STIMULI TO FEET NAIL BEDS. GRIMACE NOTED WITH TRAPEZIOUS SQUEEZE. PATIENT ON LEVO GTT AT 6 MCG/KG/MIN, VASOPRESSIN AT 0.04 UNITS/MIN, AND PHENYLEPHRINE AT 50 MCG/MIN. BPS IN THE 120S. MAPS >65. HR IN THE LOW 100S. VENT SETTINGS ARE AC/VC 16/500/10/50%. LUNG SOUNDS ARE COARSE THROUGHOUT. VIDAL CATHETER IS PATENT AND DRAINING.
--- NOTE | 2023-09-26 10:30 | NUR ---
Spiritual Care Visit. Pt. is intubated and non responsive. Pt. was getting an Echo with [facility] [employer] [facility]. Had established rapport with Pt. on a previous hospital stay. Prayed of over Pt. Will remain available to Pt.
--- NOTE | 2023-09-26 18:30 | NUR ---
END OF SHIFT SUMMARY: NEURO: PATIENT REMAINED ON 15 MCG/KG/MIN OF PROPROFOL. NO PURPOSEFUL MOVEMENT NOTED THROUGHOUT THE DAY. NO MYOCLONIC MOVEMENT NOTED. PATIENT ROTATES ARMS IN RESPONSE TO NOXIOUS NAIL BED STIMULI. NO RESPONSE TO NOXIOUS STIMULI NOTED IN BLE. GRIMACE IN RESPONSE TO TRAPEZIOUS SQUEEZE. RIGHT PUPIL 5MM AND BRISK TO LIGHT. LEFT PUPIL 5MM AND SLUGGISH TO LIGHT. TO PROTECT THE CORNEA, MEDICATED WITH EYE LUBRICATION, COVERED THE EYES WITH GAUZE AND GENTLY TAPED IN PLACE. CARDIAC: DURING THE SHIFT, ABLE TO STOP NEOSYNEPHRINE AND DECREASE LEVOPHED TO 4 MCG/MG/MIN. VASOPRESSIN GTT CONTINUES AT 0.04 UNITS/MIN. MAPS >65. STARTED THE SHIFT WITH HR IN THE LOW 100S. BY THE END OF SHIFT, HR WAS IN THE 90S. RESPIRATORY: PATIENT'S LUNG SOUNDS COARSE THROUGHOUT. THICK LUTZ/WHITE SPUTUM IN IN LINE SUCTION. DURING THE MORNING, PATIENT WAS STACKING HIS BREATHS. VENT SETTINGS CHANGED BY DR. MUNGUIA TO VC+ 16/500/10H/50%. THIS IMPROVED PATIENTS TOLERANCE OF ETT. PATIENT ABLE TO MAINTAIN THIS SETTING WITH RRS IN THE LOW 20S AND SPO2 >96%. GI: PATIENT STARTED ON TUBE FEET AT 25 MLS/HR AT 1700. DURING THE SHIFT WHEN ON LIS, OUTPUT TRANSITIONED FROM LIGHT GREEN, TO RUST, TO DARK. DR. MUNGUIA AWARE. INCONTINENT OF DARK BROWN, SOFT STOOL. : VIDAL PATENT AND DRAINING. URINE OUTPUT IS DARK YELLOW WITH SOME CLOUDINESS NOTED. PSYCHSOCIAL: PATIENT'S AT BEDSIDE THIS AFTERNOON. TEARFUL WITH DISCUSSION OF PATIENT'S PROGNOSIS. REPORTS APPRECIATION OF THE CARE HE HAS RECEIVED AND THAT SHE IS AGREEABLE TO THE PLAN OF MONITORING FOR NEUROLOGICAL IMPROVEMENT OVER THE NEXT COUPLE OF DAYS.
--- NOTE | 2023-09-26 23:35 | NUR ---
ASSUMED CARE CARE WAS ASSUMED OF PT AT 1900, REPORT GIVEN BY ANUP CALVO AND MISTY RN. PT INTUBATED AND SEDATED. PROPOFOL GTT @ 15 MCG/KG/MIN. PT FLEXES ARMS INWARD WHEN NAILBED PRESSURE APPLIED TO HANDS. NO RESPONSE TO STIMULI APPLIED TO LE. NO CORNEAL REFLEX. VENT SETTINGS AT TIME OF ASSESSMENT AC/PC, RATE 16, Pi 10, PEEP 6, FiO2 50%. GOSMAN NOTIFIED OF VENT SETTING ADJUSTMENT BY RT AFTER ASSESSMENT. PT TOLERATING WELL, O2 SATS > 95%. PT BREATHING ABOVE SET RESPIRATORY RATE. CARDIAC MONITORING REFLECTS SINUS TACH, HR 110s. LEVOPHED TITRATED DOWN LONG PT MEETING MAP GOAL OF > 65. SEE FLOW-CHART FOR TITRATIONS. TF PUT ON SB D/T PEG TUBE LEAKING AROUND INSERTION SITE. DRESSING CHANGED AROUND PEG TUBE. COOLING BLANKET ON AT SHIFT CHANGE FOR TEMPERATURE GOAL OF < 98.6. VIDAL PATENT AND DRAINING TO GRAVITY.
[2023-09-27] VITALS (102 sets, daily range): BP systolic 69–158; BP diastolic 35–87
[2023-09-27 02:23] LABS: Hematocrit 24.3 % (37.0-53.0); Mean Corpuscular HGB 31.6 pg (26.0-34.0); Mean Corpuscular HGB Conc 32.9 g/dL (31.5-36.5); Mean Corpuscular Volume 96 fL (80-100); Mean Platelet Volume 10.3 fL (9.1-12.4); Platelet Count 240 K/mm3 (150-400); RDW Coefficient Variation 16.7 % (11.7-14.2); RDW Standard Deviation 58.8 fL (35.1-46.3); Red Blood Cell Count 2.53 M/mm3 (4.30-5.90); White Blood Cell Count 29.38 K/mm3 (4.00-11.30)
[2023-09-27 03:03] LABS: Anion Gap 7 mmol/L (6-16); Blood Urea Nitrogen 61 mg/dL (8-24); CO2, Blood 27 mmol/L (21-32); Calcium, Blood 8.3 mg/dL (8.5-10.1); Chloride, Blood 98 mmol/L (98-108); Creatinine, Blood 2.54 mg/dL (0.60-1.20); Glomerular Filtration Rate 26 (60-); Glucose, Blood 186 mg/dL (70-99); Magnesium, Blood 1.9 mg/dL (1.6-2.4); Phosphorus, Blood 5.7 mg/dL (2.5-4.9); Potassium, Blood 4.3 mmol/L (3.5-5.5); Sodium, Blood 132 mmol/L (136-145)
[2023-09-27 03:20] LABS: BAND PERCENT MAN 14 % (0-8); BASOPHILS PERCENT MAN 0 % (0-2); EOSINOPHILS PERCENT MAN 0 % (0-6); LYMPHOCYTES ABSOLUTE MAN 0.29 K/mm3 (0.84-5.20); LYMPHOCYTES PERCENT MAN 1 % (21-46); MONOCYTES ABSOLUTE MAN 0.29 K/mm3 (0.16-1.47); MONOCYTES PERCENT MAN 1 % (4-13); NEUTROPHILS ABSOLUTE MAN 28.79 K/mm3 (1.96-9.15); SEG NEUTROPHILS PERCENT MAN 84 % (41-73); TOTAL CELLS COUNTED 100
--- NOTE | 2023-09-27 07:00 | NUR ---
ASSUMPTION OF CARE: ASSUMED CARE OF PATIENT WITH ANUP MENDOZA. PATIENT RESTING IN BED. PROPOFOL GTT AT 20 MCG/KG/MIN. VASOPRESSIN AT 0.4 UNITS/MIN AND LEVOPHED GTT INFUSING. HR IN THE 90S. MAPS >65, SBPS IN THE 110S. PATIENT IS NOT RESPONSIVE TO VERBAL OR PAINFUL STIMULI IN EXTREMITIES. PUPILS REACTIVE TO LIGHT. TOLERATING VENT. SETTINGS AC/PC 16/16/10/50%. SPO2 >90%. VIDAL CATHETER IS PATENT AND DRAINING. COOLING VEST IN PLACE. G-TUBE IS CLAMPED. GREEN DRAINAGE FROM INSERTION SITE NOTED.
--- NOTE | 2023-09-27 07:06 | NUR ---
SHIFT SUMMARY PT REMAINS INTUBATED AND SEDATED. PROPOFOL INCREASED TO 20 MCG/KG/MIN TO ASSIST WITH VENTILATOR COMPLIANCE. NO CORNEAL REFLEX, PT'S NEURO STATUS HAD NO CHANGES THIS SHIFT. VENT SETTINGS ADJUSTED PT RT THROUGHOUT THE NIGHT, CURRENT SETTINGS AC/PC RATE 16, Pi 16, PEEP 10, FiO2 45%. TOLERATING WELL, O2 SATS > 95%. CARDIAC MONITORING REFLECTS NSR, HR 70s. LEVOPHED AND VASOPRESSIN INFUSING TO MAINTAIN MAP > 65. VIDAL PATENT AND DRAINING TO GRAVITY. COOLING BLANKET USED TO MAINTAIN PT'S TEMP < 98.6. SODIUM BICARB INFUSING.
--- NOTE | 2023-09-27 11:10 | NUR ---
Call to Dr. Tobar regarding leaking PEG tube. Orders received for XR with contrast and he will evaluate the pt and images.
[2023-09-27 11:18] LABS: Base Excess Venous 4.5 mmol/L; Bicarbonate Venous 27.3 mmol/L (24.0-30.0); pH Blood Venous 7.39 (7.34-7.37)
--- NOTE | 2023-09-27 13:59 | NUR ---
Spiritual Care Visit. Pt. is intubated and non responsive, No visitors are in the room. Though Pt. is not responsive this seasoner verbalized re-introduction as I was his seasoner on a past hospital visit and rapport had once been established. Words of encouragement, and prayer is given. This seasoner will continue to monitor the Pt. and be available as needed and requested.
[2023-09-27 16:06] LABS: Base Excess Venous 5.9 mmol/L; PCO2 Venous 45.3 mmHg (38-42); pH Blood Venous 7.43 (7.34-7.37)
--- NOTE | 2023-09-27 19:09 | NUR ---
SHIFT SUMMARY: NEURO: PROPOFOL GTT PLACED ON STANDBY AROUHND 10:00. MINIMAL CHANGES NOTED. PATIENT DID NOT RESPOND TO NOXIOUS STIMULI IN ALL HOUR EXTREMITIES. ONCE SEDATION TURNED OFF, PATIENT DID HAVE A GAG AND COUGH. PUPILS REMAIN REACTIVE. PATIENT DID DISPLAY A MOMENTARY RHYTHMIC PATTERN OF EYE MOVEMENT AT ONE POINT THIS AFTERNOON. NO PURPOSEFUL MOVEMENT NOTED. NO MYCLONIC MOVEMENT NOTED. RESPIRATORY: PATIENT'S LUNGS COARSE THROUGHOUT. PATIENT TOLERATED THE VENT WITHOUT THE PROPOFOL. VENT SETTINGS CHANGED TO 16/12/10/50% THIS AFTERNOON. SPO2 >90% THROUGHOUT THE DAY. ETT SIZE 8.0, PLACED AT 25.0 CM AT THE GUMS. CARDIAC: ABLE TO TITRATE PATIENT OFF ALL OF VASOPRESSORS THROUGHOUT THE DAY. MAPS >65. SBPS IN THE 100S-120S. HR IN THE 90S. STAYED IN NORMAL SINUS WITH PVCS THROUGHOUT THE SHIFT. INCREASING GENERALIZED PITTING EDEMA NOTED ON ARMS, CHEST AND BACK. : VIDAL CATHETER IN PLACE AND DRAINING FREELY. URINE OUTPUT IS A YELLOW TO DARK YELLOW. DISCUSSED I/O'S WITH DR. MONTEMAYOR. NEW ORDERS TO DISCONTINUE FLUIDS AND A ONE TIME LASIX ORDER. GI: AT THE BEGINNING OF THE SHIFT, PATIENT HAD CONTINUOUS LEAKAGE FROM AROUND THE G-TUBE OF GREEN COLORED DISCHARGE. DR. HARMON ROUNDED ON PATIENT AND ADJUSTED THE FLANGE OF THE G-TUBE. ONCE THIS WAS CORRECTED, DRESSING STAYED C/D/I. INITIATED TUBE FEEDING THIS EVENING AT 10MLS/HR PER DR. MONTEMAYOR. PSYCHSOCIAL: PATIENT'S CALLED THIS AFTERNOON FOR A STATUS UPDATE. SHE REPORTS THAT SHE STILL WANTS TO "GIVE THE PATIENT A CHANCE". SHE WAS TEARFUL ON THE PHONE AND REGRETFUL THAT SHE DOES NOT DRIVE AND IS RELIANT ON NEIGHBORS TO GET INTO THE HOSPITAL.
--- NOTE | 2023-09-27 19:15 | NUR ---
ASSUMPTION OF CARE: RECEIVED REPORT FROM SHANA CALVO AND ANUP CALVO. PT INTUBATED. SETTINGS AC/PC ///50%. SPO2 >95%. PT APPEARS AGITATED WITH MOVEMENT AND FIGHTS THE VENTILATOR, BUT CALMS DOWN AND BECOMES COMPLIANT WITH REST. NO SEDATION AT THIS TIME. PT DOES NOT RESPOND TO VERBAL OR PAINFUL STIMULI. EYES GAZING TO THE RIGHT. NO CORNEAL RESPONSE. PUPILS REACTIVE, BUT MORE SLUGGISH IN RIGHT EYE. CARDIAC MONITORING IN PLACE, SR WITH FREQUENT PVC'S AND PAC'S. HR 90'S. SBP 120'S-140'S. PICC LINE TO SID, SALINE LOCKED AT THIS TIME. NO BOWEL TONES HEARD, NO BM YET THIS SHIFT. COUGH PRESENT, NO GAG. COPIOUS AMOUNTS OF SECRETIONS THROUGH ET TUBE AND ORAL. G TUBE IN PLACE, TUBE FEEDS INFUSING AT GOAL. VIDAL IN PLACE FOR CRITICAL I&O, PATENT AND DRAINING TO GRAVITY.
[2023-09-28] VITALS (89 sets, daily range): BP systolic 101–141; BP diastolic 43–91
[2023-09-28 04:07] LABS: BASOPHILS ABSOLUTE AUTO 0.04 K/mm3 (0.00-0.23); BASOPHILS PERCENT AUTO 0 % (0-2); EOSINOPHILS PERCENT AUTO 0 % (0-6); Hematocrit 24.5 % (37.0-53.0); Hemoglobin 8.1 g/dL (13.5-17.5); IMMATURE GRAN ABSOLUTE AUTO 0.45 K/mm3 (0.00-0.10); IMMATURE GRAN PERCENT AUTO 2 % (0-1); LYMPHOCYTES ABSOLUTE AUTO 0.35 K/mm3 (0.84-5.20); LYMPHOCYTES PERCENT AUTO 2 % (21-46); MONOCYTES ABSOLUTE AUTO 0.71 K/mm3 (0.16-1.47); MONOCYTES PERCENT AUTO 3 % (4-13); Mean Corpuscular HGB 31.4 pg (26.0-34.0); Mean Corpuscular HGB Conc 33.1 g/dL (31.5-36.5); Mean Corpuscular Volume 95 fL (80-100); Mean Platelet Volume 10.7 fL (9.1-12.4); NEUTROPHILS ABSOLUTE AUTO 22.34 K/mm3 (1.96-9.15); NEUTROPHILS PERCENT AUTO 93 % (41-73); Platelet Count 215 K/mm3 (150-400); RDW Coefficient Variation 16.6 % (11.7-14.2); RDW Standard Deviation 58.4 fL (35.1-46.3); Red Blood Cell Count 2.58 M/mm3 (4.30-5.90); White Blood Cell Count 23.89 K/mm3 (4.00-11.30)
[2023-09-28 04:37] LABS: Anion Gap 8 mmol/L (6-16); Blood Urea Nitrogen 64 mg/dL (8-24); Bun/Creatinine Ratio 64.1 (12.0-20.0); CO2, Blood 29 mmol/L (21-32); Calcium, Blood 8.4 mg/dL (8.5-10.1); Chloride, Blood 97 mmol/L (98-108); Glomerular Filtration Rate 80 (60-); Glucose, Blood 148 mg/dL (70-99); Magnesium, Blood 2.1 mg/dL (1.6-2.4); Sodium, Blood 134 mmol/L (136-145)
--- NOTE | 2023-09-28 06:20 | NUR ---
SHIFT SUMMARY: PT REMAINS INTUBATED T/O THE SHIFT. SEDATION CONTINUES TO REMAIN ON SB. NO COUGH OR GAG NOTED WITH SUCTIONING AND ORAL CARE. COPIOUS AMOUNTS OF SECRETIONS NOTED WITH SUCTIONING. VENT SETTINGS AC/PC 16/12/10/50%. SPO2 >95%. UPWARD GAZE NOTED BILATERALLY, PUPILS REACTIVE, BUT SLUGGISH. PT HAS DECEREBRATE POSTURING NOTED WHEN SUCTIONING. DOES NOT RESPOND TO VERBAL OR PAINFUL STIMULI. CARDIAC MONITORING SHOWS SR WITH FREQUENT PVC/PAC'S. RATE 90'S. SBP 120'S. PT BECOMES AGITATED WITH REPOSITIONING AND BECOMES NON-COMPLIANT WITH VENT, WHEN NOT STIMULATED PT COMPLIANT WITH VENT. VIDAL IN PLACE FOR CRITICAL I&O, PATENT AND DRAINING TO GRAVITY. G-TUBE INFUSING TUBE FEED AT GOAL. PICC LINE TO SHERI LAU LOCKED AT THIS TIME.
--- NOTE | 2023-09-28 07:00 | NUR ---
ASSUMPTION OF CARE: ASSUMED CARE OF PATIENT WITH ANDIE JOEL. PATIENT RESTING IN BED. PATIENT CONTINUES TO BE UNRESPONSIVE TO VERBAL STIMULI. ROTATION OF ARMS NOTED WITH DISCOMFORT. HR IN THE 90S. MAPS >65. TUBE FEEDING CONTINUES AT 10ML/HR. NO LEAKING NOTED ON G-TUBE DRESSING. SPO2 >94%. VENT SETTINGS: PC 16/12/10/50%. PATIENT LUNGS COARSE THROUGHOUT. VENT ALARMING FOR HIGH TIDAL VOLUMES. SUCTIONING PRODUCED MINIMAL THICK SECRETIONS AND DID NOT ASSIST WITH REDUCING BREATH VOLUMES. RT REYNAGA AT BEDSIDE TO ADJUST SETTINGS.
[2023-09-28 12:42] LABS: Vancomycin, Random 19.9 ug/mL
[2023-09-28 16:16] LABS: Magnesium, Blood 1.7 mg/dL (1.6-2.4); Phosphorus, Blood 4.1 mg/dL (2.5-4.9); Potassium, Blood 3.9 mmol/L (3.5-5.5)
--- NOTE | 2023-09-28 19:15 | NUR ---
ASSUMPTION OF CARE: RECEIVED REPORT FROM SHANA CALVO AND ANDIE CALVO. PT INTUBATED, NO SEDATION. VENT SETTINGS AC/PC ///40%. PT MAKING NO PURPOSEFUL MOVEMENTS. DOES NOT RESPOND TO PAINFUL OR VERBAL STIMULI. WANDERING UPWARD GAZE NOTED BILATERALLY. RIGHT PUPIL LARGER THAN LEFT WITH SLUGGISH RESPONSE. INWARD ROTATION OF ARMS NOTED WITH DEEP SUCTIONING AT TIMES. SMALL TREMOR CAN BE SEEN AND FELT IN LOWER LIMBS. COOLING BLANKET REMOVED PER DR. MONTEMAYOR. SPO2 REMAINS >95%. CARDIAC MONITORING IN PLACE SHOWS SR WITH PAC/PVC'S. RATE IN THE 90'S. SBP 110'S. PT GIVEN A DOSE OF LASIX THIS EVENING. BUE EDEMA NOTED. MORE PROMINENT ON THE RIGHT ARM. NO BOWEL TONES HEARD. NO BM YET. VIDAL IN PLACE, PATENT AND DRAINING TO GRAVITY. PICC TO SID, PATENT AND SALINE LOCKED CURRENTLY. NO COUGH OR GAG NOTED.
--- NOTE | 2023-09-28 19:28 | NUR ---
SHIFT SUMMARY: NEURO: NO PURPOSEFUL MOVEMENT NOTED. UNABLE TO REPLICATE ASPECTS OF NEURO EXAMS. FOR EXAMPLE, AT TIMES, PATIENT WOULD ROTATE LEFT ARM IN RESPONSE TO NOXIOUS STIMULI AND OTHER TIMES NOTE. NO RESPONSE TO NOXIOUS STIMULI IN BLE. UNABLE TO REPLICATE CORNEAL RESPONSE. PUPILS REMAINED REACTIVE TO LIGHT. NO COUGH OR GAG NOTED. PATIENT OFF UNIT FOR HEAD CT TODAY. PATIENT TOLERATED WELL. CARDIAC: PATIENT REMAINED HEMODYNAMICALLY STABLE WITHOUT VASOPRESSORS. MAPS >65. SBPS IN THE 100S-120S. NOTED INCREASED GENERALIZED EDEMA AND IN RIGHT HAND. BUE MODERATELY ELEVATED. DOPPLER REQUIRED TO FIND PEDIS PULSES. RESPIRATORY: PATIENT REMAINS INTUBATED. VENT SETTINGS: AC/PC 16/12/10/50%. PATIENT'S RESPIRATORY WORKLOAD INCREASED THIS AM. RT AT BEDSIDE TO ADJUST SETTINGS. PATIENT TOLERATED VENT FOR THE REST OF THE SHIFT. GI: TUBE FEED TOLERATED TODAY AT 10ML/HR. NO ABDOMINAL DISTENTION OR NOTICABLE TENDERNESS. NO NAUSEA NOTED. G-TUBE DRESSING STAYED C/D/I. : VIDAL IN PLACE AND DRAINING FREELY. URINE IS YELLOW TO DARK YELLOW.
[2023-09-29] VITALS (91 sets, daily range): BP systolic 106–186; BP diastolic 47–122
[2023-09-29 04:18] LABS: Hematocrit 24.8 % (37.0-53.0); Mean Corpuscular HGB 30.7 pg (26.0-34.0); Mean Corpuscular HGB Conc 32.3 g/dL (31.5-36.5); Mean Corpuscular Volume 95 fL (80-100); Mean Platelet Volume 10.6 fL (9.1-12.4); Platelet Count 218 K/mm3 (150-400); RDW Coefficient Variation 16.8 % (11.7-14.2); RDW Standard Deviation 57.9 fL (35.1-46.3); Red Blood Cell Count 2.61 M/mm3 (4.30-5.90); White Blood Cell Count 17.74 K/mm3 (4.00-11.30)
[2023-09-29 04:36] LABS: Albumin, Blood 2.2 g/dL (3.4-5.0); Anion Gap 9 mmol/L (6-16); Blood Urea Nitrogen 72 mg/dL (8-24); CO2, Blood 28 mmol/L (21-32); Chloride, Blood 97 mmol/L (98-108); Creatinine, Blood 2.57 mg/dL (0.60-1.20); Glomerular Filtration Rate 26 (60-); Glucose, Blood 188 mg/dL (70-99); Magnesium, Blood 2.2 mg/dL (1.6-2.4); Phosphorus, Blood 4.1 mg/dL (2.5-4.9); Potassium, Blood 4.1 mmol/L (3.5-5.5); Sodium, Blood 134 mmol/L (136-145)
[2023-09-29 05:05] LABS: BAND PERCENT MAN 12 % (0-8); BASOPHILS PERCENT MAN 0 % (0-2); EOSINOPHILS PERCENT MAN 0 % (0-6); MONOCYTES PERCENT MAN 4 % (4-13); TOTAL CELLS COUNTED 100
[2023-09-29 05:06] LABS: LYMPHOCYTES ABSOLUTE MAN 0.17 K/mm3 (0.84-5.20); LYMPHOCYTES PERCENT MAN 1 % (21-46); NEUTROPHILS ABSOLUTE MAN 16.85 K/mm3 (1.96-9.15); SEG NEUTROPHILS PERCENT MAN 83 % (41-73)
--- NOTE | 2023-09-29 06:12 | NUR ---
SHIFT SUMMARY: PT CONTINUES TO REMAIN INTUBATED WITH NO SEDATION. VENT SETTINGS 16/12/10/40%. SPO2 MID 90'S. CONTINUES TO HAVE UPWARD GAZE WITH CONTINUAL SIDE TO SIDE MOVEMENT. RIGHT PUPIL SLIGHTLY LARGER THAN LEFT WITH MORE SLUGGISH RESPONSE TO LIGHT. NO RESPONSE TO PAINFUL OR VERBAL STIMULI. PT HAS INWARD ROTATION OF UPPER EXTREMETIES WITH DEEP SUCTIONING. NO COUGH OR GAG NOTED. MINIMAL SECRETIONS NOTED. CARDIAC MONITORING SHOWS SR WITH PAC/PVC, RATE IN THE 80'S-90'S. SBP 110'S. COOLING BLANKET REMOVED PER DR. MONTEMAYOR, TEMP REMAINS <98.6 T/O THE SHIFT. VIDAL IN PLACE, PATENT AND DRAINING TO GRAVITY. NO BM T/O THE SHIFT. TUBE FEED AT GOAL INFUSING THROUGH G-TUBE. PICC LINE TO SID REMAINS PATENT AND SALINE LOCKED.
--- NOTE | 2023-09-29 07:00 | NUR ---
ASSUMPTION OF CARE PT REMAINS INTUBATED WITHOUT SEDATION. VENT SETTINGS AC/PC 16/10/50%. TV 600S-800S. PT HAS ROVING EYE MOVEMENTS, ABSENT CORNEAL REFLEX. ABSENT COUGH/GAG. UPPER EXTREMITIES INTERALLY ROTATE TO NAILBED PRESSURE. NO RESPONSE FROM LOWER EXTREMITIES. VIDAL PATENT AND DRAINING TO GRAVITY. SEE SHIFT ASSESSMENT.
--- NOTE | 2023-09-29 11:17 | NUR ---
PHONE CALL PLACED TO LIZETH. SHE STS SHE WILL BE IN TO VISIT THIS AFTERNOON.
--- NOTE | 2023-09-29 17:35 | NUR ---
UPDATE/FAMILY DISCUSSION LIZETH AT BEDSIDE WITH A FRIEND. UPDATED BY ALTAGRACIA RN AND DENISE RN ON PT CONDITION. DR MCKENZIE AT BEDSIDE AND PROVIDED IN-DEPTH COURSE OF HOSPITALIZATION AND UPDATE ON PT CONDITION. TEARFUL, EXPRESSES GRATITUDE AND STS SHE NEEDS TO NOTIFY PT'S FAMILY. PT REMAINS A FULL CODE AT THIS TIME.
--- NOTE | 2023-09-29 17:39 | NUR ---
SHIFT SUMMARY PT REMAINS INTUBATED WITH VENT SETTINGS AC/PC 16/10/50%. RR 16-20. TV 700S-800S. EYES CONTINUE TO HAVE ROVING MOVEMENT, PUPILS SLUGGISH AND MINIMALLY RESPONSIVE. ABSENT CORNEAL REFLEX. ABSENT COUGH/GAG. UPPER EXTREMITIES INTERNALLY ROTATE TO NAILBED PRESSURE, LOWER EXTREMITIES REMAIN UNRESPONSIVE TO STIMULUS. TUBE FEEDING INFUSING VIA G-TUBE. DRESSING C/D/I. VIDAL PATENT AND DRAINING TO GRAVITY. URINE IS YELLOW, 550ML OUTPUT. TMAX 100.1. ICE PACKS AND FAN APPLIED. SPOUSE UPDATED PER PREVIOUS NOTE.
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
--- NOTE | 2023-09-29 18:40 | NUR ---
UPDATE PT DESATURATED TO 81%. ETT SUCTIONED WITHOUT CHANGE. HR MAINTAINING 130S, INCREASING FREQUENCY OF PVCS. PT HYPERTENSIVE WITH SBP 160S-170S. RT NOTIFIED AND AT BEDSIDE. INCREASED TO 100% FIO2. DR MCKENZIE NOTIFIED, ORDER RECEIVED FOR ONE TIME DOSE 4MG MORPHINE IV. PT REMAINS AT 100% FIO2 AND SPO2 93%. HR REMAINS 120S. SBP 180S.
--- NOTE | 2023-09-29 19:54 | NUR ---
ASSUMPTION OF CARE: RECEIVED REPORT FROM ANDEI CALVO. PT INTUBATED, NO SEDATION. VENT SETTINGS 16/11//100%. SPO2 >90%. PT HAS CONTINUAL EYE MOVEMENTS SIDE TO SIDE WITH AN OCCASIONAL UPWARD GAZE. NO RESPONSE TO PAIN OR VERBAL STIMULI. PUPILS EQUAL AND REACTIVE BUT SLIGHTLY SLUGGISH AT TIMES. INWARD POSTURING NOTED IN UPPER EXTREMETIES WITH DEEP SUCTIONING. NO COUGH OR GAG. NO LOWER EXTREMETY MOVEMENTS NOTED. SLIGHT TREMOR T/O CAN BE SEEN AND FELT. CARDIAC MONITORING SHOWS SINUS TACH WITH RATE IN THE 120'S. SBP 170'S. MEDICATED WITH MORPHINE FOR LABORED/FORCED BREATHING, PER MAR FOR COMFORT. NO BM YET. VIDAL REMAINS FOR CRITICAL I&O, PATENT AND DRAINING TO GRAVITY. PICC TO SID, PATENT AND RUNNING TKO. TUBE FEEDS REMAIN AT GOAL THROUGH G-TUBE. DRESSING CLEAN, DRY AND INTACT.
[2023-09-30] VITALS (59 sets, daily range): BP systolic 56–166; BP diastolic 12–107
--- NOTE | 2023-09-30 05:40 | NUR ---
SHIFT SUMMARY: PT CONTINUES TO REMAIN INTUBATED WITH NO SEDATION. PUPILS NO LONGER REACTIVE, 2MM IN SIZE BILATERALLY. CONTINUAL SIDE TO SIDE MOTION NOTED IN EYES WITH UPWARD GAZE OCCASIONALLY T/O SHIFT. NO RESPONSE TO PAIN OR VERBAL STIMULI. OCCASIONAL INWARD POSTURING NOTED IN UPPER EXTREMTIES WITH DEEP SUCTION AND TURNING. NO COUGH OR GAG. MODERATE SECRETIONS FROM ET TUBE THAT ARE THICK AND LUTZ IN COLOR. PT FEBRILE AND DIAPHORETIC T/O THE SHIFT, TEMP 100.1. ICE PACKS APPLIED AND FAN IN PLACE, WITH RELIEF OF TEMP DOWN TO 99.8. VENT SETTINGS REMAIN AC/PC 16///100% WITH SATS >94%. ACCESSORY MUSCLE USE NOTED WITH RESPIRATIONS. LUNG SOUNDS COARSE AND DIM WITH OCCASIONAL EXPIRATORY WHEEZES. CARDIAC MONITORING SHOWS ST CURRENTLY WITH A PERIOD OF AFIB/ SVT RATE 160'S-170'S DURING THE NIGHT WHICH LASTED ABOUT AN HOUR. MORPHINE GIVEN AND HR SLOWED BACK DOWN TO 120'S. SBP RANGING FROM 120'S-140'S. TUBE FEED TURNED OFF AT THIS TIME, G-TUBE REMAINS WITH DRESSING CLEAN,DRY AND INTACT. NO BM THIS SHIFT. FINE TREMOR STILL NOTED AND FELT T/O. LOWER EXTREMETIES SHOW NO MOVEMENT. DEEP EDEMA NOTED T/O UPPER AND LOWER EXTREMETIES. VIDAL REMAINS IN PLACE, PATENT AND DRAINING TO GRAVITY YELLOW URINE. PICC LINE TO SID REMAINS INTACT AND SALINE LOCKED T/O THE SHIFT.
--- NOTE | 2023-09-30 07:21 | NUR ---
Received in room report from Catalina CALVO. Patient is intubated and on no sedation. He has no response to pain or reflex, pupils are 2 and eyes travel left to right at a regular rate. He has 8.0 ET and is 25cm at gums with vent settings of 16/100/10 and sats 97% and have dropped FiO2 to 90% and is currently 95%. He has oral probe wire for temp reading at 100.7. Patient has 5Fr triple lumen PICC line to SID, dressing C/D/I, flushes all ports and caps changed, all SL'd. UE's bilaterally have 3+ pitting edema. He has J tube to ULQ and is clamped per order. He has 16Fr Temp bahena draining to gravity clear yellow urine. He has 1+ edema to LE bilaterally. He has mepelex style dressings to bilateral heels. Bilateral doppler pulses right weaker than left. He has healing scabs to left foot and is missing large toe, right foot has to [address] Rivera has been by.
--- NOTE | 2023-09-30 08:16 | NUR ---
Received bedside report from Catalina Griffith. The patient's pupils are non-reactive to light, however eyes present with nystagmus. He is connected to a 8.0 vent 25cm deep at the gums. Respiration rate is 16, FiO2 is 90, peep is 10. Unable to access JVD. Cardiac rhythm is currently sinus tach at 110. Absent cough and/or gasping. Uper airway sounds clear. Lower lobes have crackles. Abdomen is distended, bowel sounds are present in all four quadrants. J-tube is present in Left upper quadrant. It is locked with dressing clean dry and intact. Patient has a 16 maltese temp bahena. Temp is not being untilized, becuase oral temp is being monitored. At time of handoff, 50 mls of yellow urine was in the catheter. Patient has +3 pitting edema in his upper extremeties bilaterally. 5 maltese PICC line is placed in left upper arm, it is locked, dry, and intact. Radial pulses present. +1 edema in lower etremeities bilaterally. I could not palpatate pedal pulses, however with the help of the RN, I was able to hear them via doppler. Patient is missing two toes on right foot and his big toe on left foot. Mempalex bandages are on his heels and ankles to prevent ulcers. pulses heard with doppler.
--- NOTE | 2023-09-30 11:30 | NUR ---
Patient remains same in neuro, no changes to pupils and reactivity. He still does not respond to pain or reflexs. Dr Villa has been by and made several adjustments and current settings and sats mid to high 80's. His bahena remains patent and small amounts of clear yellow urine . 's plan to remains full code although has been explained medical viability.
--- NOTE | 2023-09-30 15:30 | NUR ---
Patint remains unresponsive and unsedated . He is intubated 8.0 ET and still at 25cm at gums and setting of / and sats 88-90%. He continues to open eye and not track with nystagmus and a slow rate. PICC in SID remains patent and flushed post meds. His 16Fr Temp bahena draining to gravity small amounts of yellow urine. Have not seen any movement from extremties or head and neck feels very stiff with positioning.
--- NOTE | 2023-09-30 22:57 | NUR ---
ASSUMED CARE PT IS INTUBATED, OFF SEDATION. SPO2 >92% ON VENTILATOR; HR IN 100-110'S (HR 120-130'S W/ STIMULATION); MAP >65. PT WITHDRAWS FROM NOXIOUS STIMULI. GAZE UPWARDS; BEGINS TO "WANDER" SIDE TO SIDE WHEN NOXIOUS STIMULI GIVEN. NO PURPOSEFUL MOVEMENTS W/ BILATERAL UPPER/LOWER EXTREMITIES FLACCID.
--- NOTE | 2023-09-30 23:52 | NUR ---
UPDATE FIRE EDUCATION NOT GIVEN D/T PT UNRESPONSIVE.
[2023-10-01] VITALS (64 sets, daily range): BP systolic 79–132; BP diastolic 43–92
--- NOTE | 2023-10-01 03:04 | NUR ---
UPDATE PT DID NOT TOLERATE BED BATH; HR UP IN 160'S FOR 5~ MINUTES AND INCREASE IN EYE MOVEMENT NOTED. ATIVAN GIVEN; PT RATE 100-110'S AT TIME OF THIS NOTE.
--- NOTE | 2023-10-01 07:31 | NUR ---
SHIFT SUMMARY PT REMAINS INTUBATED; SPO2 >92% ON VENTILATOR; HR NSR IN 80-90'S; MAP >65. NEURO STATUS REMAINS UNCHANGED. NO ACUTE EVENTS SINCE PREVIOUS NOTE. VIDAL CATHETER PATENT AND DRAINING TO GRAVITY.
--- NOTE | 2023-10-01 09:33 | NUR ---
ASSUMPTION OF CARE BEDSIDE SHIFT REPORT RECEIVED FROM SOREN RN. PT INTUBATED BUT NOT SEDATED. VENTILATOR SETTINGS AC/PC 16/12/5/60% LUNG SOUNDS COARSE. PT HAS UPWARDS GAZE, UNRESPONSIVE TO STIMULI. PTS EXTREMITIES FLACCID. HR 90'S SR, MAP >65. BOWEL TONES HYPOACTIVE, PEG TUBE IN PLACE TO LUQ. VIDAL IN PLACE PATENT DRAINING TO GRAVITY. SCD'S IN PLACE. PICC LINE TO SID . BED IN LOWEST POSITION, CARE CONTINUES.
--- NOTE | 2023-10-01 18:01 | NUR ---
SHIFT SUMMARY PT RESTING IN BED. PTINTUBATED BUT NOT SEDATED. VENT SETTINGS AC/PC / 100%. CONTINUES TO BE UNRESPONSIVE WITH UPWARDS GAZE, EXTREMITIES FLACCID. PT HAS COPIOUS ORAL SECRETIONS, NO BM. VIDAL PATENT DRAINING TO GRAVITY. 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 PICC LINE TO SID SEGURA. PT FAMILY TO ARRIVE TOMORROW TO DISCUSS POSSIBLE COMFORT CARE. BED IN LOWEST POSITION. CARE CONTINUES.
--- NOTE | 2023-10-01 20:19 | NUR ---
ASSUMED CARE PT IS INTUBATED. SPO2 >92%; MAP >65; NSR 90'S. PUPILS REMAIN FIXED; UPWARDS GAZE THAT MOVE SIDE TO SIDE W/ STIMULI. WHILE PERFORMING ORAL CARE, NO GAG WAS NOTED. EXTREMITIES FLACCID. OPENS EYES TO NOXIOUS STIMULI, BUT NO PURPOSEFUL GAZE OR MOVEMENTS.
[2023-10-02] VITALS (25 sets, daily range): BP systolic 67–97; BP diastolic 35–52
--- NOTE | 2023-10-02 02:06 | NUR ---
UPDATE PT NO LONGER OVERBREATHING THE VENT; RESPIRATORY RATE 16. EYES NO LONGER HAVE SIDE TO SIDE MOVEMENT W/ STIMULI.
--- NOTE | 2023-10-02 06:19 | NUR ---
SHIFT SUMMARY PT REMAINS INTUBATED. SPO2 >92%; MAP 55~; NSR IN 80-90'S. PT'S NEURO STATUS HAS NOT CHANGED SINCE LAST NOTE AND STILL HAS RESPIRATORY RATE OF 16. GAZE IS FIXED FORWARD. NO OTHER ACUTE EVENTS OVERNIGHT.
--- NOTE | 2023-10-02 09:00 | NUR ---
ASSUMED CARE OF KIA AT 0700 DURING BEDSIDE REPORT. PT IS ON VENTILATOR, RATE 16, PS 12, TI 0.8, PEEP 5, 90% FIO2. SATS 95%. ORAL CARE COMPLETED, PT REPOSITIONED, CATH CARE DONE, EYES LUBRICATED. PT WITH NO RESPONSE TO THIS NURSE. BP MAP ~50. HR 90'S. TEMP 96.9. ARMS EDEMATOUS, LEGS EDEMATOUS. PEG TUBE CLAMPED. NO IV'S OR FEEDINGS AT THIS TIME.
--- NOTE | 2023-10-02 09:41 | NUR ---
Spiritual Care Visit. Pt. is intubated and non-responsive. This mid level clinician has developed rapport with this Pt. in the past. [place] visitors are Present. This mid level clinician spoke to the Pt. and prayed for the Pt. Will remain available to the Pt. Note: In the past, Pts. spouse requested there be no spiritual care visits, however afterward the Pt. (when in PCU) requested this mid level clinician to return when the spouse was not present.
--- NOTE | 2023-10-02 12:12 | NUR ---
Per bedside RN Ailin, pt's 02 sats are 84% with 100% Fi02 on vent. Pt non-responsive, pupils fixed. I placed a call to pt's Beatrice, asked if she will be coming in today, she states she will be here soon. I informed her of pt's oxygen saturation and lowering blood pressure. Beatrice stated via t/c she is waiting for her ride to arrive, and states she doesn't know if the pt's relatives will be coming by today. Palliative Care will remain available.
--- NOTE | 2023-10-02 13:02 | NUR ---
IS HERE, SHE HAS SPOKEN WITH . SHE AGREES TO REMOVE THE VENTILATOR THIS IS PROLONGING HIS TIME. SHE ASKS FOR SOME TIME WITH HIM.
--- NOTE | 2023-10-02 13:38 | NUR ---
REQUESTED THAT R/T BE CALLED TO REMOVE THE TUBE. SHE ASKED TO STEP OUT AND WOULD COME BACK IN WHEN THE TUBE WAS REMOVED. GAMALIEL ROSENBERG RT AND I WERE WITH PATIENT DURING EXTUBATION, TIME 1307. PT IMMEDIATELY BEGAN TO DECREASE HIS SATS AND ATTEMPT WAS MADE TO FIND THE . SHE WAS NO LONGER PRESENT IN THE FACILITY. STAYED WITH PT HEART RATE AND SATURATIONS DROPPED AND HE TOOK HIS FINAL BREATHS. HE WAS PRONOUNCED AT 1315 BY THIS RN AND LESLI EPPS RN. RETURNED AT 1328 AND WAS TOLD THAT HE PASSED QUICKLY AND QUIETLY, SHE WAS VISIBLY SHOOK AND BEGAN CRYING. SHE THEN COVERED NEVAEH'S FACE AFTER SAYING GOODBYE. HE WILL BE GOING TO [facility] [address].
--- NOTE | 2023-10-02 14:03 | NUR ---
NOTIFIED OF PT'S PASSING.
== END 2023-10-02 13:15 | DRG 870 ==
LOC: ER 08:29 → ICUE 09:04
PROVIDERS: Emergency Medicine; Family Medicine; Internal Medicine Critical Care Medicine; ADMIT Internal Medicine
PROC: 5A1955Z Respiratory Ventilation, Greater than 96 Consecutive Hours (ICD-10-PCS; principal; 2023-09-25)
PROC: 0BH17EZ Insertion of Endotracheal Airway into Trachea, Via Natural or Artificial Opening (ICD-10-PCS; principal; 2023-09-25)
PROC: 3E03329 Introduction of Other Anti-infective into Peripheral Vein, Percutaneous Approach (ICD-10-PCS; 2023-09-25)
PROC: 5A12012 Performance of Cardiac Output, Single, Manual (ICD-10-PCS; 2023-09-25)
PROC: 3E033XZ Introduction of Vasopressor into Peripheral Vein, Percutaneous Approach (ICD-10-PCS; 2023-09-25)
PROC: 05H533Z Insertion of Infusion Device into Right Subclavian Vein, Percutaneous Approach (ICD-10-PCS; 2023-09-25)
PROC: B44HZZZ Ultrasonography of Bilateral Lower Extremity Arteries (ICD-10-PCS; 2023-09-25)
PROC: B24BZZZ Ultrasonography of Heart with Aorta (ICD-10-PCS; 2023-09-25)
DX: A41.9 Sepsis, unspecified organism (principal); J96.21 Acute and chronic respiratory failure with hypoxia; J15.1 Pneumonia due to Pseudomonas; J15.20 Pneumonia due to staphylococcus, unspecified; I50.43 Acute on chronic combined systolic (congestive) and diastolic (congestive) heart failure; J69.0 Pneumonitis due to inhalation of food and vomit; G93.1 Anoxic brain damage, not elsewhere classified; J44.0 Chronic obstructive pulmonary disease with (acute) lower respiratory infection; I13.0 Hypertensive heart and chronic kidney disease with heart failure and stage 1 through stage 4 chronic kidney disease, or unspecified chronic kidney disease; N17.9 Acute kidney failure, unspecified; E87.1 Hypo-osmolality and hyponatremia; T85.598A Other mechanical complication of other gastrointestinal prosthetic devices, implants and grafts, initial encounter; J44.1 Chronic obstructive pulmonary disease with (acute) exacerbation; I46.9 Cardiac arrest, cause unspecified; Z51.5 Encounter for palliative care; I25.10 Atherosclerotic heart disease of native coronary artery without angina pectoris; E03.9 Hypothyroidism, unspecified; I48.0 Paroxysmal atrial fibrillation; D64.9 Anemia, unspecified; E83.51 Hypocalcemia; E11.65 Type 2 diabetes mellitus with hyperglycemia; E11.51 Type 2 diabetes mellitus with diabetic peripheral angiopathy without gangrene; E11.22 Type 2 diabetes mellitus with diabetic chronic kidney disease; N18.30 Chronic kidney disease, stage 3 unspecified; R57.0 Cardiogenic shock; N40.0 Benign prostatic hyperplasia without lower urinary tract symptoms; R65.20 Severe sepsis without septic shock; K21.9 Gastro-esophageal reflux disease without esophagitis; G25.0 Essential tremor; I48.91 Unspecified atrial fibrillation; R91.8 Other nonspecific abnormal finding of lung field; R13.10 Dysphagia, unspecified; E87.70 Fluid overload, unspecified; Z85.118 Personal history of other malignant neoplasm of bronchus and lung; Z88.1 Allergy status to other antibiotic agents; Z79.4 Long term (current) use of insulin; Z85.01 Personal history of malignant neoplasm of esophagus; Z86.19 Personal history of other infectious and parasitic diseases; Z90.2 Acquired absence of lung [part of]; Z95.1 Presence of aortocoronary bypass graft; Z89.421 Acquired absence of other right toe(s); Z86.16 Personal history of COVID-19; Z90.49 Acquired absence of other specified parts of digestive tract; Z87.891 Personal history of nicotine dependence; Z79.82 Long term (current) use of aspirin; Z79.52 Long term (current) use of systemic steroids
CPT/HCPCS: 31500; 36569; 51702; 70450; 71045; 71250; 74150; 80047; 80053; 80069; 80202; 81001; 82330; 82803; 82947; 83735; 83880; 84100; 84132; 84484; 85014; 85025; 87070; 87077; 87086; 87147; 87186; 87205; 92950; 93005; 93010; 93970; 94002; 94003; 94640; 94664; 94762; 95819; 99291-25; 99292; A9270; C1751; C8929; C9113; J0282; J0612; J0696; J0744; J1265; J1650; J1720; J1815; J1940; J2060; J2270; J2371; J2704; J3010; J3370; J7030; J7040; J7050; J7060; J7070; J7120; Q9957